=== PATIENT | female | born 1945 | race Caucasian/White ===

== ENCOUNTER 2023-12-16 09:38 | Observation (INO) ==
--- NOTE | 2023-12-16 10:39 | Emergency Department Note ---
ED Provider Note History of Present Illness Chief Complaint: Leg Injury/Pain Stated Complaint: PAIN DOWN L LEG, NUMBNESS IN SIDE OF LEG Time Seen by Provider: 12/16/23 10:04 78-year-old female who presents to the emergency department with her for evaluation of ongoing and worsening back pain and left lower extremity pain. The patient reports that she recently had an MRI, and is awaiting an appointment with the [facility] on 12/27/2023. The patient is on the cancellation list. The patient has been taking pain medications, muscle relaxers and nerve pills without any relief. The patient reports that she also has a history of arthritis of her hips. She gets bilateral hip injections every [address] Menard, and is scheduled for her next injection on 01/01/2024. The patient reports that this pain does not feel like her hip. The patient reports that she has also developed bruising of her left leg, and denies any trauma. She denies history of blood clots. The patient currently rates her discomfort a 10 out of 10. Home Medications Medication Instructions Recorded Confirmed Type hydroxyzine HCl 25 mg tablet 25 mg PO HS PRN sleep #90 tabs 07/09/22 12/16/23 Rx omeprazole 40 mg capsule,delayed 40 mg PO DAILY #90 caps 07/09/22 12/16/23 Rx release ascorbic acid (vitamin C) 500 mg 500 mg PO DAILY #30 caps 03/06/23 12/16/23 Rx capsule cyanocobalamin (vitamin B-12) 1,000 mcg PO DAILY #30 caps 03/06/23 12/16/23 Rx 1,000 mcg capsule glucosamine-chondroitin 250 mg-200 2 tab PO TID #180 tabs 03/06/23 12/16/23 Rx mg tablet (Osteo Bi-Flex) sertraline 25 mg tablet (Zoloft) 25 mg PO DAILY #90 tabs 06/03/23 12/16/23 Rx furosemide 20 mg tablet 20 mg PO BID #180 tabs 07/23/23 12/16/23 Rx gabapentin 100 mg capsule 100 mg PO TID #90 caps 12/06/23 12/16/23 Rx hydrocodone 5 mg-acetaminophen 325 1 tab PO Q8H PRN pain 3 days #9 12/13/23 12/16/23 Rx mg tablet tabs clotrimazole 1 % topical cream 1 applic topical UD 12/16/23 12/16/23 History (Athlete's Foot (clotrimazole)) Allergies Allergy/AdvReac Type Severity Reaction Status Date / Time No Known Allergies Allergy Verified 12/13/23 10:45 Past Med/Surg History Problem List (Updated 12/16/23 @ 16:58 by Allan Garcia) Hypokalemia (Acute) Lumbar back pain with radiculopathy affecting left lower extremity (Acute) Intractable low back pain (Acute) Low back pain radiating to left leg Disc degeneration, lumbar Low back pain radiating to right leg Medical History Lumbosacral radiculopathy at L4 Osteoarthritis, hip, bilateral Elevated blood pressure reading Anxiety Peptic ulcer of stomach Diverticula, colon Lymphedema of lower extremity Osteoarthritis of shoulders, bilateral Surgical History H/O esophagogastroduodenoscopy (~05/09/22) Normal esophagus. Non-bleeding gastric ulcer with no stigmata of bleeding. Normal examined duodenum. Repeat 3 months S/P colonoscopy (~09/27/20) diverticulosis sigmoid colon/biopsies show adenomatous polyps. 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 [employer] Feels Safe at Home: Yes Childhood Exposure to Second-Hand Smoke: No Dental Care, Regularly: Yes Sunscreen Use: Yes Physical Exam Vital Signs Vital Signs - 24 hr 12/16/23 09:43 12/16/23 10:45 12/16/23 12:28 Temperature 36.8 C Temperature Source Temporal Artery Scan Pulse Rate 92 H 90 Pulse Rate [Apical] 75 Pulse Strength [Apical] Normal Respiratory Rate 18 19 Respiratory Effort / Characteristics Non-Labored Spontaneous Non-Labored Spontaneous Respiratory Depth Normal Normal Respiratory Pattern Regular Regular Blood Pressure 170/85 H Blood Pressure [Left Arm] 164/93 H Blood Pressure Mean 113 Blood Pressure Mean [Left Arm] 116 Pulse Oximetry 100 98 Oxygen Delivery Method Room Air Room Air Sepsis Recent Fever Within 48 Hours No Sepsis New/Unexplained Change in Mental Status N/A Sepsis Action Taken by Nursing No Action Required 12/16/23 14:00 12/16/23 16:00 Temperature Temperature Source Pulse Rate Pulse Rate [Apical] 78 80 Pulse Strength [Apical] Respiratory Rate 18 14 Respiratory Effort / Characteristics Non-Labored Spontaneous Respiratory Depth Normal Respiratory Pattern Blood Pressure Blood Pressure [Left Arm] 136/93 148/94 H Blood Pressure Mean Blood Pressure Mean [Left Arm] 107 112 Pulse Oximetry 94 94 Oxygen Delivery Method Room Air Room Air Sepsis Recent Fever Within 48 Hours Sepsis New/Unexplained Change in Mental Status Sepsis Action Taken by Nursing CONSTITUTIONAL: Healthy and well nourished. Patient appears in moderate discomfort. HEENT: Normocephalic, atraumatic. Pupils equal, round and reactive. RESPIRATORY: Clear to auscultation bilaterally with no wheezing, crackles, rhonchi or stridor. CARDIOVASCULAR: Regular rate and rhythm with no murmurs, rubs or gallops. GASTROINTESTINAL: Bowel sounds present in all quadrants. Soft and nontender to palpation. MUSCULOSKELETAL: Examination of the left lower extremity shows soft tissue edema without any erythema, open wounds or other concerning skin conditions. The patient is generally tender to palpation through the calf and thigh region as well. Patient has discomfort with logroll, and has a mild positive straight leg raise. INTEGUMENTARY: No rash or other significant dermatologic conditions noted. HEMATOLOGIC: Examination shows sporadic ecchymosis of the left lower extremity. No petechiae or erythema noted. PSYCHIATRIC: Positive affect. NEUROLOGIC: No focal neurologic deficits noted. Course Course Patient history and physical exam were performed. Nurses notes reviewed. I did review outside medical records, including the patient's latest office notes. Also reviewed the patient's latest MRI, showing discogenic degeneration with ligamentum flavum thickening and facet arthrosis. She also has multilevel central canal and neuroforaminal narrowing. No large herniations or severe central canal stenosis appreciated. Further review shows that the patient also was seen by Dr. Ashley, not any Orthopedics back surgeon in May 2023. He had recommended tizanidine and steroids for pain control. The patient reports that the steroids did not provide any relief. The patient voices frustration that nothing that she is taking is helping with her pain, and is concerned that she has something else going on. IV access was established, and labs are drawn. The patient was hydrated with normal saline 500 cc bolus, and administered IV morphine and Zofran for pain. Review of labs shows relatively normal white count, coagulation studies. The patient does have a mild hypokalemia of 3.2. Venous ultrasound of the left lower extremity does not show evidence for DVT. The patient did request additional pain medication, and was administered additional IV morphine. I did discuss normal findings with the patient. The patient voiced concern for her inability to control pain at home. At this point, I did elect to escalate care, discussing the case with Dr. Blanco, ED attending physician, as well as the [facility] Hospitalist service. The patient indicates that she feels that another WENDI would help her significantly, however does not feel that she can wait until her scheduled appointment. I did try to call the [facility] provider on-call, but unfortunately did not receive a return phone call. The case was discussed with the hospitalist service, who has agreed to bring the patient in for pain control until she can get her pain management consult. Please see their dictation for further treatment and final disposition. Administered Medications Discontinued Medications Dexamethasone Sodium Phosphate (DexamethasonePf 10 Mg/Ml Vial) 6 mg IV NOW ONE Stop: 12/16/23 10:31 Last Admin: 12/16/23 10:44 Dose: 6 mg Documented By: FORTINO Sodium Chloride (Nss) 500 mls @ 999 mls/hr IV .Q31M ONE Stop: 12/16/23 11:02 Last Infusion: 12/16/23 11:22 Dose: Infused Documented By: Admin: 12/16/23 10:46 Dose: 999 mls/hr Documented By: FORTINO Morphine Sulfate (Morphine Sulfate 2 Mg/Ml Carp) 2 mg IV NOW STA Stop: 12/16/23 10:31 Last Admin: 12/16/23 10:44 Dose: 2 mg Documented By: FORTINO Morphine Sulfate (Morphine Sulfate 4 Mg/Ml 1 Ml Carp\Vial) 4 mg IV NOW STA Stop: 12/16/23 13:10 Last Admin: 12/16/23 13:47 Dose: 4 mg Documented By: FORTINO Ondansetron HCl (Ondansetron Inj 2 Mg/Ml 2 Ml Vial) 4 mg IV NOW STA Stop: 12/16/23 10:31 Last Admin: 12/16/23 10:44 Dose: 4 mg Documented By: FORTINO Potassium Chloride (Potassium Chloride Crtab 20 Meq Tabcr) 40 meq PO NOW STA Stop: 12/16/23 14:28 Last Admin: 12/16/23 14:43 Dose: 40 meq Documented By: FORTINO Medical Decision Making Medical Records Attestation: I reviewed the patient's medical records. Home Medications was personally reviewed by me Laboratory Data Attestation: I reviewed the patient's lab results. 12/16/23 10:45 12/16/23 10:45 Lab Results 12/16/23 Range/Units 10:45 WBC 7.92 (4.8-10.8) K/ul RBC 4.64 (4.20-5.40) M/uL Hgb 14.4 (12.0-16.0) g/dl Hct 40.3 (37.0-47.0) % MCV 86.9 (80.0-100.0) fL MCH 31.0 (25.0-34.0) pg MCHC 35.7 (32.0-36.0) g/dL RDW Std Deviation 42.3 (36.4-46.3) fL RDW Coeff of Soha 13.6 (11.5-14.5) % Plt Count 390 (130-400) K/uL MPV 9.5 (9.4-12.4) fL Immature Gran % (Auto) 0.4 % Neut % (Auto) 62.9 % Lymph % (Auto) 25.3 % [place]pin % (Auto) 10.4 % Eos % (Auto) 0.6 % Baso % (Auto) 0.4 % Neut # (Auto) 4.99 (1.40-6.50) K/uL Lymph # (Auto) 2.00 (1.20-3.40) K/uL [place] # (Auto) 0.82 H (0.11-0.59) K/uL Eos # (Auto) 0.05 (0.00-0.50) K/uL Baso # (Auto) 0.03 (0.00-0.20) K/uL Immature Gran # (Auto) 0.03 (0.01-0.20) K/uL ESR 20 (0-30) mm/hr PT 10.3 (9.0-12.0) Seconds INR 0.9 (0.9-1.1) APTT 27 (21-31) Seconds PTT Ratio 1.0 Sodium 136 (136-145) mmol/L Potassium 3.2 L (3.5-5.1) mmol/L Chloride 99 (98-107) mmol/L Carbon Dioxide 26 (21-32) mmol/L Anion Gap 11 (3-11) BUN 17 (6-23) mg/dl Creatinine 0.61 (0.6-1.2) mg/dl Est Cr Clr Drug Dosing 64.2 ml/min Est GFR ( Amer) 99.9 ml/min Est GFR (Non-Af Amer) 86.2 ml/min BUN/Creatinine Ratio 27.9 H (10-20) Glucose 90 (70-99(Fasting)) mg/dl Calcium 9.2 (8.6-10.3) mg/dl Total Bilirubin 0.5 (0.2-1.0) mg/dl AST 37 (13-39) U/L ALT 43 (7-52) U/L Alkaline Phosphatase 122 H (34-104) U/L Total Protein 7.5 (6.0-8.3) gm/dl Albumin 4.4 (3.4-5.0) gm/dl Globulin 3.1 (2.5-4.0) gm/dl Albumin/Globulin Ratio 1.4 (0.9-2) Imaging Data Attestation: I personally reviewed and interpreted this imaging study as follows: My Impression: My interpretation of the venous ultrasound of the left lower extremity does not show evidence for DVT. Radiologist report was also reviewed with concurrence. Radiologist's Impression: Venous Doppler Study 12/16/23 10:33 LEFT LOWER EXTREMITY VENOUS DOPPLER CLINICAL HISTORY: LLE pain, ecchymosis, edema COMPARISON STUDY: No previous studies for comparison. TECHNIQUE: Sonography of the deep venous system of the left lower extremity was performed. Compression and augmentation were evaluated. FINDINGS: The left common femoral, superficial femoral and popliteal veins were compressible. Augmentation was normal. Flow was shown within the deep calf vessels. IMPRESSION: No evidence of deep venous thrombus within the left lower extremity. ACT 112: Negative or not required by law. Electronically signed by: Roberto Antonio M.D. 12/16/2023 12:25 PM Prescription Drug Monitoring [place] Drug Monitoring Program reviewed and no issues identified MDM Narrative See ED Course section for further details of today's visit. The patient presents to the emergency department with complaint of uncontrollable lower back pain radiating down to her left foot. The patient does have a history of lumbar radiculitis. She has undergone epidural steroid injections in the past. The patient reports that she has received multiple medications from her PCP, has completed physical therapy, and has exhausted all additional multimodal treatments at home without relief. With progressively worsening symptoms, she has requested pain management consultation, although she has an appointment scheduled for 12/27/2023. Her workup today, including lab work, does not show any concerning findings. Patient does have atraumatic ecchymosis of the left lower extremity. She also has a history of lymphedema. Given her symptoms, I did elect to get an ultrasound left upper extremity which was negative for DVT. The patient denies any recent trauma, and having had an MRI performed on 12/04/2023, I did not feel that further imaging was warranted. Patient is afebrile does not have an elevated white count to suggest infectious etiologies. Patient does have a mild hypokalemia which can be corrected by the hospitalist team. Consultation will be placed with pain management for further evaluation, with the patient requesting an epidural steroid injection. It is noted that the patient has had prior injections in her back and other joints by orthopedics. Impression Intractable low back pain, Lumbar back pain with radiculopathy affecting left lower extremity, Hypokalemia Discharge Plan Visit Data Chief Complaint: Leg Injury/Pain Stated Complaint: PAIN DOWN L LEG, NUMBNESS IN SIDE OF LEG ED Provider: Paulina Blanco ED Midlevel Provider: Allan Garcia Discharge Problem: Intractable low back pain, Lumbar back pain with radiculopathy affecting left lower extremity, Hypokalemia Forms Stand Alone Forms: [place] Prescriptions Prescriptions: No Action sertraline [Zoloft] 25 mg tablet 25 mg PO DAILY Qty: 90 3RF furosemide 20 mg tablet 20 mg PO BID Qty: 180 1RF gabapentin 100 mg capsule 100 mg PO TID Qty: 90 1RF glucosamine-chondroitin [Osteo Bi-Flex] 250-200 mg tablet 2 tab PO TID Qty: 180 0RF Rx Instructions: otc give after food/meal cyanocobalamin (vitamin B-12) 1,000 mcg capsule 1,000 mcg PO DAILY Qty: 30 0RF Rx Instructions: otc ascorbic acid (vitamin C) 500 mg capsule 500 mg PO DAILY Qty: 30 0RF Rx Instructions: otc hydroxyzine HCl 25 mg tablet 25 mg PO HS PRN (Reason: sleep) Qty: 90 0RF omeprazole 40 mg capsule,delayed release(DR/EC) 40 mg PO DAILY Qty: 90 1RF Rx Instructions: OTC/ no fill history available hydrocodone-acetaminophen 5-325 mg tablet 1 tab PO Q8H PRN (Reason: pain) 3 Days Qty: 9 0RF clotrimazole [Athlete's Foot (clotrimazole)] 1 % cream 1 applic topical UD Rx Instructions: 1 ivanna bid last filled 02/2023 Referrals Referrals: Kanika Espinoza CRNP [Primary Care Provider] -
[2023-12-16] MEDS: MoRPHine SULFATE 2 MG/ML CARP IV STA (10:44)
[2023-12-16] MEDS: ONDANSETRON INJ 2 MG/ML 2 ML VIAL IV STA (10:44)
[2023-12-16] MEDS: dexAMETHasone**PF** 10 MG/ML VIAL IV ONE (10:44)
[2023-12-16] MEDS: SODIUM CHLORIDE 0.9% 500 ML IV ONE (10:46)
[2023-12-16 11:25] LABS: Albumin Globulin Ratio 1.4 (0.9-2); Albumin Level 4.4 gm/dl (3.4-5.0); BUN Creatinine Ratio 27.9 (10-20); Bilirubin,Total 0.5 mg/dl (0.2-1.0); Calcium 9.2 mg/dl (8.6-10.3); Creatinine Clr Calc Pharmacy 64.2 ml/min; Est GFR (African American) 99.9 ml/min; Est GFR (Non-African American) 86.2 ml/min; Globulin 3.1 gm/dl (2.5-4.0); Potassium 3.2 mmol/L (3.5-5.1); Total Protein 7.5 gm/dl (6.0-8.3)
[2023-12-16 11:40] LABS: INR 0.9 (0.9-1.1); Partial Thromboplastin Time 27 Seconds (21-31); Prothrombin Time 10.3 Seconds (9.0-12.0)
[2023-12-16 12:12] LABS: Basophils # (auto) 0.03 K/uL (0.00-0.20); Basophils % (auto) 0.4 %; Eosinophils # (auto) 0.05 K/uL (0.00-0.50); Eosinophils % (auto) 0.6 %; Hematocrit (blood only) 40.3 % (37.0-47.0); Hemoglobin 14.4 g/dl (12.0-16.0); Immature Granulocytes # (auto) 0.03 K/uL (0.01-0.20); Immature Granulocytes % (auto) 0.4 %; Lymphocytes % (auto) 25.3 %; Mean Corpuscular Hgb Conc 35.7 g/dL (32.0-36.0); Mean Corpuscular Volume 86.9 fL (80.0-100.0); Mean Platelet Volume 9.5 fL (9.4-12.4); Monocytes # (auto) 0.82 K/uL (0.11-0.59); Monocytes % (auto) 10.4 %; Neutrophils # (auto) 4.99 K/uL (1.40-6.50); Neutrophils % (auto) 62.9 %; Platelet Count 390 K/uL (130-400); RDW Coefficient of Variation 13.6 % (11.5-14.5); RDW Standard Deviation 42.3 fL (36.4-46.3); Red Blood Count 4.64 M/uL (4.20-5.40); White Blood Count 7.92 K/ul (4.8-10.8)
--- NOTE | 2023-12-16 12:26 | Ultrasound Report ---
LEFT LOWER EXTREMITY VENOUS DOPPLER CLINICAL HISTORY: LLE pain, ecchymosis, edema COMPARISON STUDY: No previous studies for comparison. TECHNIQUE: Sonography of the deep venous system of the left lower extremity was performed. Compressi on and augmentation were evaluated. FINDINGS: The left common femoral, superficial femoral and popliteal veins were compressible. Augmen tation was normal. Flow was shown within the deep calf vessels. IMPRESSION: No evidence of deep venous thrombus within the left lower extremity. ACT 112: Negative or not required by law. Electronically signed by: Roberto Antonio M.D. 12/16/2023 12:25 PM
[2023-12-16] MEDS: MoRPHine SULFATE 4 MG/ML 1 ML CARP\\VIAL IV STA (13:47)
--- NOTE | 2023-12-16 14:02 | Hospitalist Progress Note ---
Date of Service December 16, 2023 Assessment & Plan (1) Low back pain radiating to right leg: Plan: Acute on chronic low back pain, no recent fall/trauma, no red flag symptoms on admission. Has outpatient establish care appointment 12/26, but pain was too bad and patient presented to the ER. Lumbar MRI 12/03: Discogenic degeneration with ligamentum flavum thickening and facet arthrosis resulting in multilevel central canal and neuroforaminal narrowing. Received Dexamethasone in the ER, no additional steroids ordered on admission Gabapentin increased to 200mg TID (home dose 100mg TID) Scheduled tylenol. PRN oxycodone. Consult pain management - NPO at midnight incase of procedure tomorrow One sided bruises on left leg - Doppler negative for DVT - hgb stable (2) Lymphedema of lower extremity: Plan: Continue lasix BID K 3.2 on admission, replaced PO AM BMP Plan Chronic stable medical conditions: * hx of gastric ulcer - continue PPI, avoid NSAIDs * anxiety - continue zoloft Dispo: admit to medical DVT proh: defer chemical in setting of possible injection Code status: DNR/DNI - discussed with patient Ziggy Mondragon is 78F with a PMH of anxiety, lymphedema, hx of gasric ulcer and lumbar back pain who presents to the ED for worsening of her left leg/back pain. States pain has been worsening over the last month, she has been seen by her PCP and ortho-spine for this issue. Has trialed gabapentin, muscle relaxers, tylenol, lidocaine patches and oxycodone. Did feel like gabapentin provided some relief for a few days but then worsened. She had a similar problem 3 years ago and resolved with epidural injection. Presented to the ER today, after having worsening pain in her right leg. Was scheduled to see pain management 12/26 as a new patient appointment. Denies red flag symptoms - incontinence or bowel/bladder dysfunction, fever. No fall or recent trauma. Does have new bruising only on her left leg - no thinner or antiplatelets. ED Course: Dexamethsone 6mg NSS 500 zofran morphine 2mg morphine 4mg Review of Systems Review of Systems: All systems reviewed & are unremarkable except as noted in Subjective Physical Exam Physical Exam: General: NAD, VS as above Resp: normal respiratory effort, lungs clear to auscultation CV: RRR, no murmur, Abd: soft, non tender, Extremities: Moves all extremities, + Straight leg raise on the right. Intact strength and sensation to b/l LE Neuro: A&O x3, Skin: intact, bruising to left thigh Results & Data Results & Data Vital Signs (Past 12 Hours) Vital Signs Temp Pulse Pulse Resp BP BP Pulse Ox 12/16/23 12:28 75 19 164/93 H 98 12/16/23 10:45 90 12/16/23 09:43 98.2 F 92 H 18 170/85 H 100 O2 Del Method 12/16/23 12:28 Room Air 12/16/23 10:45 12/16/23 09:43 Room Air Laboratory Results CBC, chemistry, and coagulation studies reviewed Diagnostic Findings LE doppler reviewed PG Care Time/CCT Total # of Minutes Spent Total Time Spent with Patient: Total time spent is greater than 50% in coordination of care (as documented) at patient's floor/unit and/or counseling patient: Coding Level of Care Code 15673 SUB INP/OBS CARE 2/35MIN Diagnoses Low back pain radiating to right leg M54.50; M79.604 Lymphedema of lower extremity I89.0
[2023-12-16] MEDS: POTASSIUM CHLORIDE CRTAB 20 MEQ TABCR PO STA (14:43)
--- NOTE | 2023-12-16 16:51 | History & Physical Report ---
Date of Service December 16, 2023 Assessment & Plan (1) Low back pain radiating to left leg: Plan: Acute on chronic low back pain, no recent fall/trauma, no red flag symptoms on admission. Has outpatient establish care appointment 12/26, but pain was too bad and patient presented to the ER. Lumbar MRI 12/03: Discogenic degeneration with ligamentum flavum thickening and facet arthrosis resulting in multilevel central canal and neuroforaminal narrowing. Received Dexamethasone in the ER, no additional steroids ordered on admission Gabapentin increased to 200mg TID (home dose 100mg TID) Scheduled tylenol. PRN oxycodone. Consult pain management - plan to see her tomorrow, but unlikely that they will be able to provide injection given the amount of injections she has gotten from ortho on other joints Consult ortho spine - has seen doretha in the past One sided bruises on left leg - Doppler negative for DVT - hgb stable (2) Lymphedema of lower extremity: Plan: Continue lasix 20mg BID K 3.2, replaced PO AM BMP Plan Chronic stable medical conditions: * hx of gastric ulcer - continue PPI, avoid NSAIDs * anxiety - continue zoloft Dispo: admit to medical DVT proh: defer chemical in setting of possible injection Code status: DNR/DNI - discussed with patient History of Present Illness Chief Complaint: Alanna is 78F with a PMH of anxiety, lymphedema, hx of gasric ulcer and lumbar back pain who presents to the ED for worsening of her left leg/back pain. States pain has been worsening over the last month, she has been seen by her PCP and ortho-spine for this issue. Has trialed gabapentin, muscle relaxers, tylenol, lidocaine patches and oxycodone. Did feel like gabapentin provided some relief for a few days but then worsened. She had a similar problem 3 years ago and resolved with epidural injection. Presented to the ER today, after having worsening pain in her right leg. Was scheduled to see pain management 12/26 as a new patient appointment. Denies red flag symptoms - incontinence or bowel/bladder dysfunction, fever. No fall or recent trauma. Does have new bruising only on her left leg - no thinner or antiplatelets. ED Course: Dexamethsone 6mg NSS 500 zofran morphine 2mg morphine 4mg Primary Care Provider: Kanika S. Olga, [facility] SENIOR CARE PROVIDER Allergies Allergy/AdvReac Type Severity Reaction Status Date / Time No Known Allergies Allergy Verified 12/13/23 10:45 Home Medications Medication Instructions Recorded Confirmed Type hydroxyzine HCl 25 mg tablet 25 mg PO HS PRN sleep #90 tabs 07/09/22 12/16/23 Rx omeprazole 40 mg capsule,delayed 40 mg PO DAILY #90 caps 07/09/22 12/16/23 Rx release ascorbic acid (vitamin C) 500 mg 500 mg PO DAILY #30 caps 03/06/23 12/16/23 Rx capsule cyanocobalamin (vitamin B-12) 1,000 mcg PO DAILY #30 caps 03/06/23 12/16/23 Rx 1,000 mcg capsule glucosamine-chondroitin 250 mg-200 2 tab PO TID #180 tabs 03/06/23 12/16/23 Rx mg tablet (Osteo Bi-Flex) sertraline 25 mg tablet (Zoloft) 25 mg PO DAILY #90 tabs 06/03/23 12/16/23 Rx furosemide 20 mg tablet 20 mg PO BID #180 tabs 07/23/23 12/16/23 Rx gabapentin 100 mg capsule 100 mg PO TID #90 caps 12/06/23 12/16/23 Rx hydrocodone 5 mg-acetaminophen 325 1 tab PO Q8H PRN pain 3 days #9 12/13/23 12/16/23 Rx mg tablet tabs clotrimazole 1 % topical cream 1 applic topical UD 12/16/23 12/16/23 History (Athlete's Foot (clotrimazole)) Past Med/Surg History Problem List Low back pain radiating to left leg Disc degeneration, lumbar Low back pain radiating to right leg Medical History Lumbosacral radiculopathy at L4 Osteoarthritis, hip, bilateral Elevated blood pressure reading Anxiety Peptic ulcer of stomach Diverticula, colon Lymphedema of lower extremity Osteoarthritis of shoulders, bilateral Surgical History H/O esophagogastroduodenoscopy (~05/09/22) Normal esophagus. Non-bleeding gastric ulcer with no stigmata of bleeding. Normal examined duodenum. Repeat 3 months S/P colonoscopy (~09/27/20) diverticulosis sigmoid colon/biopsies show adenomatous polyps. 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 Intact strength and sensation to b/l LE Neuro: A&O x3, Skin: intact, bruising to left thigh Results & Data Results & Data Vital Signs (Past 12 Hours) Vital Signs Temp Pulse Pulse Resp BP BP Pulse Ox 12/16/23 16:00 80 14 148/94 H 94 12/16/23 14:00 78 18 136/93 94 12/16/23 12:28 75 19 164/93 H 98 12/16/23 10:45 90 12/16/23 09:43 98.2 F 92 H 18 170/85 H 100 O2 Del Method 12/16/23 16:00 Room Air 12/16/23 14:00 Room Air 12/16/23 12:28 Room Air 12/16/23 10:45 12/16/23 09:43 Room Air Supervising Physician Co-Signing Physician Notes Patient seen and examined, chart reviewed, case discussed with Kerri Strickland PA-C and I agree with the assessment and plan as above except as otherwise noted Labs and images reviewed 78-year-old female with a past medical history of lumbar disc disease with multilevel central canal narrowing who presents to the ER with progressive pain. She was scheduled to follow-up with pain management for possible steroid injections however pain has progressed to the point where she is having difficulty functioning at home and presented to the ER for evaluation. Left leg back pain is worsened for the last month and has not had significant improvement with gabapentin, tizanadine, lido patches, or tylenol. She has received morphine, dexamethasone in the ER and reports this helped a little, but not enough to allow her to function. She would like to be admitted with pain management consultation and wanted to have another epidural steroid injection. She does not have any saddle anesthesia, any weakness, or any bowel/bladder retention/incontinence. At bedside service desk specialist strength 5/5, elbow flexion/extension 5/5, ankle dorsiflexion/plantarflexion 5/5 bilaterally Additional injections are limited by patient having multiple steroid injections this year with Ortho. At the bedside patient reports that she has been dealing with this pain for a full month, and she is the sole caregiver both for her and a sick dog and the pain is now making it very difficult to perform these activities. She also notes for the same reason she has not been interested in pursuing surgery either for her back hips or shoulders because it has not yet been necessary, and also she does not have the help required to help take care of her dog and family while she recovers. Would like to pursue all possible medical avenues until these are completely exhausted and/or ineffective. She reports she has had multiple injections of both her hips and shoulders this past year with Ortho which she spaces out now to around every 3-4 months and seem to work for her. Last epidural injection was 3 years ago. She is aware that because of this pain management may not be able to do an epidural steroid injection due to total dose limitations, but would like to discuss options with them in the morning. Will uptitrate gabapentin tonight. Agree with assessment and management above PG Care Time/CCT Total # of Minutes Spent Total Time Spent with Patient: Total time spent is greater than 50% in coordination of care (as documented) at patient's floor/unit and/or counseling patient: Coding Level of Care Code 45891 INT INP/OBS CARE 2/55MIN Diagnoses Low back pain radiating to left leg M54.50; M79.605 Lymphedema of lower extremity I89.0
[2023-12-16] MEDS ORDERED: POLYETHYLENE (MIRALAX) 17 GM PACK PO PRN (19:11)
[2023-12-16] MEDS ORDERED: MELATONIN 3 MG TAB PO PRN (19:11)
[2023-12-16] MEDS ORDERED: oxyCODONE HCL IR 5 MG TAB (IMMEDIATE RELEASE) PO PRN (19:11)
[2023-12-16] MEDS: FUROSEMIDE 20 MG TAB PO SCH (20:38)
[2023-12-16] MEDS: ACETAMINOPHEN 325 MG TAB PO SCH (20:38)
[2023-12-16] MEDS: GABAPENTIN 100 MG CAP PO SCH (20:39)
[2023-12-17 06:31] LABS: BUN Creatinine Ratio 28.1 (10-20); Calcium 8.9 mg/dl (8.6-10.3); Creatinine Clr Calc Pharmacy 63.3 ml/min; Est GFR (African American) 102.2 ml/min; Est GFR (Non-African American) 88.2 ml/min; Potassium 3.9 mmol/L (3.5-5.1)
[2023-12-17 07:24] VITALS: RESP 18
--- NOTE | 2023-12-17 08:22 | Hospitalist Progress Note ---
Date of Service December 17, 2023 Assessment & Plan (1) Low back pain radiating to left leg: Plan: Acute on chronic low back pain, no recent fall/trauma, no red flag symptoms on admission. Has outpatient establish care appointment 12/26, but pain was too bad and patient presented to the ER. Lumbar MRI 12/03: Discogenic degeneration with ligamentum flavum thickening and facet arthrosis resulting in multilevel central canal and neuroforaminal narrowing. Received Dexamethasone in the ER, no additional steroids ordered on admission Gabapentin increased to 200mg TID (home dose 100mg TID) Scheduled tylenol. PRN oxycodone. Consult pain management - plan to see her tomorrow, but unlikely that they will be able to provide injection given the amount of injections she has gotten from ortho on other joints Consult ortho spine - has seen suzyatos in the past One sided bruises on left leg - Doppler negative for DVT - hgb stable (2) Lymphedema of lower extremity: Plan: Continue lasix 20mg BID K 3.2, replaced PO AM BMP Plan Chronic stable medical conditions: * hx of gastric ulcer - continue PPI, avoid NSAIDs * anxiety - continue zoloft Dispo: admit to medical DVT proh: defer chemical in setting of possible injection Code status: DNR/DNI - discussed with patient Admission and Anticipated Discharge Date Admission Date: December 16, 2023 Supervising Physician Co-Signing Physician Notes Attending attestation Pt seen and examined in concert with Dr. Gale. In agreement with the documented findings as noted in the resident documentation with any exceptions or additions as noted here. Reports pain well controlled at present on APAP and gabapentin 200mg x 2 doses. Has been doing PT x 2 months and feels like that is somewhat helpful. On discussion, defers surgical evaluation at this time after review of risks/benefits. On examination, S1/S2 nl RRR no MCG. CTAB. Abd NT/ND BS+ve. Overall negative SLR. Palpable spasm of the right lower back which is improved by lidocaine patch. Lower back pain with considerable degerative disk disease - continue gabapentin 200mg TID and APAP 1000mg TID. Do not combine APAP with hydrocodone-APAP rx previously. Encourage follow up with primary pain and ortho team for further management. Precautions for somnolence reviewed, follow with PCP for adjustment of gabapentin. Else see resident documentation as noted. Total attending physician time spent with this patient's care on the day of discharge: 40 minutes. Results & Data Results & Data Vital Signs (Past 12 Hours) Vital Signs Temp Pulse Resp BP Pulse Ox O2 Del Method 12/17/23 07:23 36 C L 84 18 154/75 H 97 Room Air 12/16/23 21:38 36.8 C 87 16 161/81 H 96 Room Air
--- NOTE | 2023-12-17 09:29 | Pain Management Consultation ---
Date of Consultation December 17, 2023 Assessment & Plan (1) Lumbar back pain with radiculopathy affecting left lower extremity: (2) Disc degeneration, lumbar: (3) Spinal stenosis of lumbar region: Plan 1. Patient has current injectable steroid burden of 800 mg since last December, which is above the pain clinic threshold of 240 mg in a calendar year. * Due to this, epidural steroid injection is not currently recommended due to risk of adrenal crisis. * If patient continues to receive steroidal joint injections, then she would continue to be ineligible for lumbar WENDI. 2. Patient currently not using the ordered oxycodone. Could give consideration for Nucynta, but would likely have difficulty getting coverage without the patient having tried and failed the other options initially. * So, do recommend that the patient utilize the oxycodone IR, or potentially try hydrocodoneacetaminophen. 3. Recommend increasing gabapentin further to 300 mg TID. 4. Lumbar spine MRI shows multilevel moderate stenosis, but no specific areas of severe findings. There may also be a component of left piriformis syndrome occurring. 5. Patient wishes to go home today to take care of her , whom she says has cancer. She says she also has a sick dog that she needs to get home to. I had recommended that she work with PT/OT to ensure she is safe to return home, but she will need to discuss discharge plans with the hospitalist team. 6. I see that a consult is placed for orthospine, Dr. Brown, and the patient has noted that she is not interested in surgery due to her other obligations. 7. Pain management team will sign off at this time, and the patient may follow- up as an outpatient in the pain clinic if she so chooses in the future. History of Present Illness Reason for Consultation: worsening lumbar back pain Requesting Physician: Kerri Strickland PA-C Attending Physician: Hamilton Sanchez MD History of Present Illness Patient is a 78-year-old female who presented to the emergency department with her on 12/16/2023 for evaluation of ongoing and worsening back pain and left lower extremity pain. The patient reported that she had recently had an MRI, and was awaiting an appointment with the [facility] on 12/27/2023. The patient reported being on the cancellation list. The patient was been taking pain medications, muscle relaxers, and nerve pain pills without any relief. The patient reported that she also has a history of arthritis of her hips. She gets bilateral hip injections every [address] Menard, and is scheduled for her next injection on 01/01/2024. Patient also receives bilateral shoulder steroid injections by Dr. Dallas every 3 to 4 months. The patient reports that her current pain does not feel like it is coming from her hip. The patient reports that she has also developed bruising of her left anterior thigh leg, and she denied any trauma. She denied history of blood clots. Patient said that she was having difficulty with lifting her left leg at the hip, and agreed that it felt like a weakness. She was localizing pain today to the left buttocks and down the posterior lateral left thigh and lower lower leg. She described the pain as being a "sciatica" type of pain that she had previously experienced, and which only responded to a lumbar epidural steroid injection that she had done up near [facility]. It seems that that injection was at least a few years ago, and did provide her with adequate relief of symptoms at that time. Patient does have a history of lumbar disc disease with multilevel central canal narrowing. Again, she was scheduled to to have an initial visit with the [facility] pain management clinic for possible steroid injections, however pain had progressed to the point where she was having difficulty functioning at home and so she presented to the ER for evaluation. He her pain was worsening over a period of at least a month prior to her arrival at the ED. Patient was requesting admission with a pain management consultation to have another epidural steroid injection. She had noted no significant improvement with gabapentin, tizanidine, lidocaine patches, and Tylenol. The gabapentin was just recently started by her PCP at 100 mg TID. She denied any bowel/bladder incontinence or saddle anesthesia. Today, the patient notes that she is the sole caregiver for both her , who has cancer, and a sick dog. She is wanting to get back home as soon as possible to take care of them. Due to this, she was not interested in discussing any potential surgical intervention. She was requesting to pursue and exhaust any and all more conservative treatment measures. Case discussed with Dr. Skylar Burgess. Pain Assessment Full Body Front + Back: 2 1. 2. Allergies Allergy/AdvReac Type Severity Reaction Status Date / Time No Known Allergies Allergy Verified 12/13/23 10:45 Home Medications Medication Instructions Recorded Confirmed Type hydroxyzine HCl 25 mg tablet 25 mg PO HS PRN sleep #90 tabs 07/09/22 12/16/23 Rx omeprazole 40 mg capsule,delayed 40 mg PO DAILY #90 caps 07/09/22 12/16/23 Rx release ascorbic acid (vitamin C) 500 mg 500 mg PO DAILY #30 caps 03/06/23 12/16/23 Rx capsule cyanocobalamin (vitamin B-12) 1,000 mcg PO DAILY #30 caps 03/06/23 12/16/23 Rx 1,000 mcg capsule glucosamine-chondroitin 250 mg-200 2 tab PO TID #180 tabs 03/06/23 12/16/23 Rx mg tablet (Osteo Bi-Flex) sertraline 25 mg tablet (Zoloft) 25 mg PO DAILY #90 tabs 06/03/23 12/16/23 Rx furosemide 20 mg tablet 20 mg PO BID #180 tabs 07/23/23 12/16/23 Rx hydrocodone 5 mg-acetaminophen 325 1 tab PO Q8H PRN pain 3 days #9 12/13/23 12/16/23 Rx mg tablet tabs clotrimazole 1 % topical cream 1 applic topical UD 12/16/23 12/16/23 History (Athlete's Foot (clotrimazole)) acetaminophen 500 mg tablet 1,000 mg (2 x 500 mg) PO Q8 PRN 12/17/23 Rx (Tylenol Extra Strength) pain 15 days #90 tabs gabapentin 100 mg capsule 200 mg (2 x 100 mg) PO TID 30 days 12/17/23 Rx #180 caps Patient History Medical History Lumbosacral radiculopathy at L4 Osteoarthritis, hip, bilateral Elevated blood pressure reading Anxiety Peptic ulcer of stomach Diverticula, colon Lymphedema of lower extremity Osteoarthritis of shoulders, bilateral Surgical History H/O esophagogastroduodenoscopy (~05/09/22) Normal esophagus. Non-bleeding gastric ulcer with no stigmata of bleeding. Normal examined duodenum. Repeat 3 months S/P colonoscopy (~09/27/20) diverticulosis sigmoid colon/biopsies show adenomatous polyps. Performed by Solo Dunne MD S/P arthroscopic knee surgery (~02/17/13) Arthroscopy knee medial or lateral meniscectomy performed by Juvenal Webb MD at OR [facility] Family History Other No pertinent family history Social History Smoking Status: Never smoker Second Hand Exposure: No; Do You Dip or Chew Tobacco: No; Hx Alcohol Use: Yes Alcohol type: wine Hx Substance Use: No Preferred Language: Spanish Communication Ability: Effective Computer Mechanic Required: No Beliefs That Will Affect Care: None marital status: Current Living Situation: Spouse current occupational status: retired 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 Mood and affect is appropriate. Does not appear in acute distress. Lying supine in bed with appearance of mild discomfort. HEAD: Normocephalic; atraumatic. NECK: Trachea is midline. CHEST: Regular chest respiration and excursion. EXTREMITIES: Distal sensation and pulses intact bilaterally. BACK: Diminished ROM.No midline, SI joint, or facet joint tenderness. + TTP left buttocks over sciatic nerve/notch and piriformis. Inspection/palpation demonstrates loss of normal lumbar lordotic curvature. NEURO: CN II-XII grossly intact with no focal deficits noted. Gait not witnessed. Awake, alert, and oriented x 3. SKIN: No lesions, erythema, or rashes noted. LOWER EXTREMITIES: R Hip flexion 5/5; hip extension 5/5; knee extension 5/5; knee flexion 5/5; ankle dorsiflexion 5/5; ankle plantar flexion 5/5; EHL 5/5 L Hip flexion 3+/5; hip extension 4/5; knee extension 4+/5; knee flexion 4+/5; ankle dorsiflexion 5/5; ankle plantar flexion 5/5; EHL 5/5 Results (Pain Clinic) Diagnostic Review MRI Findings: MR lumbar spine wo con CLINICAL HISTORY: 78 years-old Female with M54.50 - Low back pain, unspecified. Chronic low back pain with left-sided sciatica. COMPARISON: Lumbar spine radiographs 01/30/2023. TECHNIQUE: Multiplanar, multi sequence MRI of the lumbar spine was performed without intravenous contrast. FINDINGS: Computer Forensics Examiner localizer images demonstrate no gross extraspinal abnormality. There is mild levoscoliosis. Study is motion degraded. No acute fracture, subluxation, endplate erosion or marrow replacing process. No significant bone marrow edema. Conus medullaris terminates at L1. Moderate multilevel intervertebral disc space narrowing and spondylitic spurring with fofdymtn-rc-rdyvnr facet arthrosis. Circumferential annular disc bulging is also noted at several levels. Normal signal within the imaged thoracic spinal cord. T12-L1: Central canal is patent. Yzvv-lz-ztimohpr right with mild left foraminal narrowing. L1-L2: Posterior annular disc bulge with ligamentum flavum thickening and advanced facet arthrosis causes moderate central canal stenosis. AP dimension of the thecal sac measures 7 mm. Mild right with fjhr-iq-xdbuvykv left foraminal narrowing. L2-L3: Posterior annular disc bulge with ligamentum flavum thickening and advanced facet arthrosis causes icxg-vp-gdevnnal central canal stenosis. AP dimension of the thecal sac measures 8 mm. Mild bilateral foraminal stenosis. L3-L4: Posterior annular disc bulge. Ligamentum flavum thickening with moderate facet arthrosis. Kddf-la-fgoitvej central canal stenosis with AP dimension of the thecal sac measuring 8 mm. Rsdd-ce-zcbwmqbd right with mild left foraminal narrowing. L4-L5: Tiny posterior disc osteophyte complex. Ligamentum flavum thickening and thickening with advanced facet arthrosis causes ixlv-si-klgjymbd central canal stenosis. AP dimension of the thecal sac measures 8 mm. Moderate right with dqsq-zj-rgyhonef left foraminal narrowing. L5-S1: Tiny posterior annular disc bulge. Ligamentum flavum thickening with kquzsykz-fb-irngzy facet arthrosis. Tiny central disc protrusion. No significant central canal or foraminal narrowing. Trace right facet effusion. IMPRESSION: 1. No acute fracture or subluxation. 2. Discogenic degeneration with ligamentum flavum thickening and facet arthrosis as above resulting in multilevel central canal and neuroforaminal narrowing. ACT 112: Negative or not required by law. The above report was generated using voice recognition software. It may contain grammatical, syntax or spelling errors. Dictated: 12/04/2023 4:20 PM Transcribed: 12/04/2023 4:38 PM Zhao [id number] [email or web address] Electronically signed by: Boone Smith M.D. 12/04/2023 6:54 PM Dictated: 12/04/23 1620 Transcribed: 12/04/23 1638 Venous Doppler Study 12/16/23 10:33 LEFT LOWER EXTREMITY VENOUS DOPPLER CLINICAL HISTORY: LLE pain, ecchymosis, edema COMPARISON STUDY: No previous studies for comparison. TECHNIQUE: Sonography of the deep venous system of the left lower extremity was performed. Compression and augmentation were evaluated. FINDINGS: The left common femoral, superficial femoral and popliteal veins were compressible. Augmentation was normal. Flow was shown within the deep calf vessels. IMPRESSION: No evidence of deep venous thrombus within the left lower extremity. ACT 112: Negative or not required by law. Electronically signed by: Roberto Antonio M.D. 12/16/2023 12:25 PM
[2023-12-17] MEDS: SERTRALINE HCL 50 MG TABLET PO SCH (09:54)
[2023-12-17] MEDS: PANTOprazole 40 MG TAB PO SCH (09:55)
[2023-12-17] MEDS: ACETAMINOPHEN 500 MG TAB PO SCH (09:59)
[2023-12-17] MEDS: LIDOCAINE 5% 1 PATCH TD STA (11:37)
[2023-12-17 14:52] VITALS: TEMP 97.7; O2SAT 96
[2023-12-17 17:25] VITALS: BP 167/84; PULSE 79
--- NOTE | 2023-12-17 17:33 | Discharge Summary ---
Date of Service December 17, 2023 Admission HPI Per Admitting Provider Chief Complaint: Alanna is 78F with a PMH of anxiety, lymphedema, hx of gasric ulcer and lumbar back pain who presents to the ED for worsening of her left leg/back pain. States pain has been worsening over the last month, she has been seen by her PCP and ortho-spine for this issue. Has trialed gabapentin, muscle relaxers, tylenol, lidocaine patches and oxycodone. Did feel like gabapentin provided some relief for a few days but then worsened. She had a similar problem 3 years ago and resolved with epidural injection. Presented to the ER today, after having worsening pain in her right leg. Was scheduled to see pain management 12/26 as a new patient appointment. Denies red flag symptoms - incontinence or bowel/bladder dysfunction, fever. No fall or recent trauma. Does have new bruising only on her left leg - no thinner or antiplatelets. Admission Exam Per Admitting Provider General: NAD, VS as above Resp: normal respiratory effort, lungs clear to auscultation CV: RRR, no murmur, Abd: soft, non tender, Extremities: Moves all extremities, + Straight leg raise on the right. Intact strength and sensation to b/l LE Neuro: A&O x3, Skin: intact, bruising to left thigh Principal Diagnosis Lower back pain Discharge Exam Gen: NAD, WD/WN, pleasant HEENT: NCAT, PERRL CV: RRR, no m/r/g, S1/S2 normal Resp: CTAB, symmetrical chest rise, breathing non-labored Abd: Soft, NT/ND, +BS MSK: Full ROM, pain not reproduced w straight leg raise, no ttp Skin: Warm, dry, pink, no rashes or lesions Neuro: AOx3, CN II-XII grossly intact Psych: Mood-affect congruent. Speech pace and content normal. Discharge Data Allergies Allergy/AdvReac Type Severity Reaction Status Date / Time No Known Allergies Allergy Verified 12/13/23 10:45 Consultations 12/16/23 14:03 ED Decision to Admit Stat 12/16/23 14:25 Consult Pain Management Stat 12/16/23 19:11 Consult Orthopedic Spine Surgery Routine Ordered Studies 12/16/23 10:45 12/17/23 05:40 12/16/23 10:33 US venous doppler LE Stat Hospital Course (1) Low back pain radiating to left leF with history of degenerative disc disease (central canal + neuroforaminal narrowing) on as needed opiates who presented for poorly controlled lower back pain. ER workup negative for acute fracture, acute exacerbation of aforementioned DDD, foraminal stenosis. Admitted for acute pain management. Lower Back Pain Radiating to Left Leg -Lumbar MRI (12/03): DDD with central canal and neuroforaminal narrowing. -Pain control achieved by increasing home gabapentin dose to 200 mg 3 times daily, OTC Tylenol 1000 mg every 8 hours scheduled, TD lidocaine. Now at goal. -Continue gabapentin 200 mg 3 times daily, Tylenol 1000 mg every 8 hours as needed for breakthrough pain. Lymphedema of Lower Extremity -Continue home furosemide 20 mg twice daily. -Continue at discharge. (2) Lymphedema of lower extremity: Total Time Total Time Spent Total Time Spent (In Minutes): Please see attending attestation. Discharge Plan Discharge Items Patient Disposition: Home - Self-Care Reason For Visit: LOW BACK PAIN Discharge Diagnosis: Acute Activity: Per Instructions section Non-emergency contact: Primary Care Provider Call non-emergency contact if: you have any medication questions, your symptoms worsen and your pain is not controlled Follow-up/Referrals: Kanika Espinoza CRNP [Primary Care Provider] - Diet: Regular Addtl Attending Provider Instructions: Dearavindra Mondragon, You came to the hospital due to back pain that was not controlled by your chronic at home regimen. We evaluated you with imaging to ensure that there was not an acute worsening of your chronic spinal stenosis. Once this was confirmed, we controlled your pain by modifying your home medications which helped. We also consulted with orthopedic surgery, to ensure that you did not require surgical intervention at this time. Now that your pain has improved, we believe that you are ready to be safely discharged home. Please pay attention to the following instructions below. If you have any questions, you may review it with your nurse before you are discharged. 1. We increased your home gabapentin dose to 200 mg 3 times daily, from 100 mg 3 times daily. We have sent the new prescription to your pharmacy. Please take gabapentin 200 mg 3 times daily, unless otherwise instructed by your primary care physician. 2. For pain not controlled by gabapentin, we recommend that you take Tylenol 1000 mg every 8 hours as needed for pain. A new prescription for this medication has also been sent to your pharmacy. 3. We made no changes to the rest of your home medications. Please continue to take them as previously directed, unless otherwise instructed to by your primary care physician. 4. Our test man will make a follow follow-up appointment with your primary care provider, Kanika PEDRAZA. You should hear from their clinic to schedule the follow-up appointment in the next 2-3 business days. If you have not heard from their clinic by then, please contact them at [phone]. 5. If you find that your pain is worsening, you should reach out to your primary care provider for recommendations or to schedule a visit. If you are unable to reach out to them, and you experience the following symptoms saddle numbness (loss of sensation in your inner thighs), incontinence to stool or urine, lower leg weakness, or paralysis of your lower legs you should immediately head to the emergency room for urgent evaluation. It has been our pleasure to care for you here [facility]. If you have any questions or concerns about your care, you may reach out to us at [phone]. Pending Studies at Discharge: No Stand-Alone Forms: [facility], Smoking Cessation Medications and DC Order Prescriptions: New acetaminophen [Tylenol Extra Strength] 500 mg Tablet 1,000 mg PO Q8 PRN (Reason: pain) 15 Days Qty: 90 0RF gabapentin 100 mg Capsule 200 mg PO TID 30 Days Qty: 180 0RF Continued sertraline [Zoloft] 25 mg tablet 25 mg PO DAILY Qty: 90 3RF furosemide 20 mg tablet 20 mg PO BID Qty: 180 1RF glucosamine-chondroitin [Osteo Bi-Flex] 250-200 mg tablet 2 tab PO TID Qty: 180 0RF Rx Instructions: otc give after food/meal cyanocobalamin (vitamin B-12) 1,000 mcg capsule 1,000 mcg PO DAILY Qty: 30 0RF Rx Instructions: otc ascorbic acid (vitamin C) 500 mg capsule 500 mg PO DAILY Qty: 30 0RF Rx Instructions: otc hydroxyzine HCl 25 mg tablet 25 mg PO HS PRN (Reason: sleep) Qty: 90 0RF omeprazole 40 mg capsule,delayed release(DR/EC) 40 mg PO DAILY Qty: 90 1RF Rx Instructions: OTC/ no fill history available hydrocodone-acetaminophen 5-325 mg tablet 1 tab PO Q8H PRN (Reason: pain) 3 Days Qty: 9 0RF clotrimazole [Athlete's Foot (clotrimazole)] 1 % cream 1 applic topical UD Rx Instructions: 1 ivanna bid last filled 02/2023 Discontinued gabapentin 100 mg capsule 100 mg PO TID Qty: 90 1RF Discharge Orders: Discharge Order (Routine); Ordered 12/17/23 Ordered By: Bria Noel/Other Patient Handouts: Relieving Back Pain, Medicine for Pain Admission Data Admit Date/Time: 12/16/23 14:25 Attending Provider: Hamilton Sanchez Admit Provider: Venkata Castanon Primary Care Provider: Kanika Espinoza Other Providers: Panda Diaz; Venkata Castanon; Josh Brown Other Interventions: Discharge Summary Assessment (RN) Last Done: 12/17/23 17:24 Supervising Physician Co-Signing Physician Notes Attending attestation Pt seen and examined in concert with Dr. Gale. In agreement with the documented findings as noted in the resident documentation with any exceptions or additions as noted here. Reports pain well controlled at present on APAP and gabapentin 200mg x 2 doses. Has been doing PT x 2 months and feels like that is somewhat helpful. On discussion, defers surgical evaluation at this time after review of risks/benefits. On examination, S1/S2 nl RRR no MCG. CTAB. Abd NT/ND BS+ve. Overall negative SLR. Palpable spasm of the right lower back which is improved by lidocaine patch. Lower back pain with considerable degerative disk disease - continue gabapentin 200mg TID and APAP 1000mg TID. Do not combine APAP with hydrocodone-APAP rx previously. Encourage follow up with primary pain and ortho team for further management. Precautions for somnolence reviewed, follow with PCP for adjustment of gabapentin. Else see resident documentation as noted. Total attending physician time spent with this patient's care on the day of discharge: 40 minutes. Resident Activity Tracking Resident Involvement: Resident Care Provided Care Provided: Adult Hospital Medicine
[2023-12-18] MEDS ORDERED: LIDOCAINE 5% 1 PATCH TD SCH (09:00)
== END 2023-12-17 17:46 | disposition home or self-care (01) ==
LOC: 3W 09:38 → ED 09:38 → SUATTDRO 14:25 → 3W 18:00

== ENCOUNTER 2024-01-31 04:52 | Observation (INO) ==
--- NOTE | 2024-01-01 15:59 | PAT Medication Instructions ---
Medication Instructions Date of Service January 01, 2024 Home Medications Medication Instructions Recorded hydroxyzine HCl 25 mg tablet 25 mg PO HS PRN sleep #90 tabs 07/09/22 omeprazole 40 mg capsule,delayed 40 mg PO DAILY #90 caps 07/09/22 release ascorbic acid (vitamin C) 500 mg 500 mg PO DAILY #30 caps 03/06/23 capsule cyanocobalamin (vitamin B-12) 1,000 mcg PO DAILY #30 caps 03/06/23 1,000 mcg capsule glucosamine-chondroitin 250 mg-200 2 tab PO TID #180 tabs 03/06/23 mg tablet (Osteo Bi-Flex) sertraline 25 mg tablet (Zoloft) 25 mg PO DAILY #90 tabs 06/03/23 furosemide 20 mg tablet 20 mg PO BID #180 tabs 07/23/23 gabapentin 100 mg capsule 200 mg (2 x 100 mg) PO TID 30 days 12/17/23 #180 caps hydrocodone 5 mg-acetaminophen 325 1 tab PO Q8H PRN pain 2 weeks #42 12/23/23 mg tablet tabs hydroxyzine HCl 25 mg tablet 25 mg PO HS PRN sleep omeprazole 40 mg capsule,delayed release 40 mg PO DAILY ascorbic acid (vitamin C) 500 mg capsule 500 mg PO DAILY cyanocobalamin (vitamin B-12) 1,000 mcg capsule 1,000 mcg PO DAILY glucosamine-chondroitin 250 mg-200 mg tablet (Osteo Bi-Flex) 2 tab PO TID sertraline 25 mg tablet (Zoloft) 25 mg PO DAILY furosemide 20 mg tablet 20 mg PO BID clotrimazole 1 % topical cream (Athlete's Foot (clotrimazole)) 1 applic topical UD gabapentin 100 mg capsule 200 mg (2 x 100 mg) PO TID hydrocodone 5 mg-acetaminophen 325 mg tablet 1 tab PO Q8H PRN pain 2 weeks Continue as directed omeprazole 40 mg capsule,delayed release 40 mg PO DAILY sertraline 25 mg tablet (Zoloft) 25 mg PO DAILY STOP taking 2 weeks before surgery glucosamine-chondroitin 250 mg-200 mg tablet (Osteo Bi-Flex) 2 tab PO TID STOP taking 24 hours before surgery clotrimazole 1 % topical cream (Athlete's Foot (clotrimazole)) 1 applic topical UD DO NOT take the morning of surgery ascorbic acid (vitamin C) 500 mg capsule 500 mg PO DAILY cyanocobalamin (vitamin B-12) 1,000 mcg capsule 1,000 mcg PO DAILY furosemide 20 mg tablet 20 mg PO BID Take morning of surgery With a small sip of water, OTHERWISE NOTHING TO EAT OR DRINK AFTER MIDNIGHT: gabapentin 100 mg capsule 200 mg (2 x 100 mg) PO TID hydrocodone 5 mg-acetaminophen 325 mg tablet 1 tab PO Q8H PRN pain (if needed) Take evening before surgery hydroxyzine HCl 25 mg tablet 25 mg PO HS PRN sleep (if needed) furosemide 20 mg tablet 20 mg PO BID gabapentin 100 mg capsule 200 mg (2 x 100 mg) PO TID hydrocodone 5 mg-acetaminophen 325 mg tablet 1 tab PO Q8H PRN pain 2 weeks (if needed) Other Notes If you have any questions please call us at [phone] or [phone] or [phone] or [phone]
--- NOTE | 2024-01-13 09:19 | Anesthesiology Consultation ---
Date of Service January 13, 2024 Assessment & Plan (1) Encounter for pre-operative examination: - fluid bolus to anesthesiologist discretion DOS: neuraxial vs general anesthesia discussed with patient given her history of lumbar disc disease and recently [facility] ER evaluation due to back pain exacerbation. She verbalized understanding that final determination will be to assigned anesthesiologist evaluation and determination after discussion with patient DOS. She denied questions or concerns. - discharge summary 12/17/23 [facility]: "...Lower Back Pain Radiating to Left Leg- Lumbar MRI (12/03): DDD with central canal and neuroforaminal narrowing-Pain control achieved by increasing home gabapentin dose to 200 mg 3 times daily, OTC Tylenol 1000 mg every 8 hours scheduled, TD lidocaine...Lymphedema of Lower Extremity-Continue home furosemide 20 mg twice daily..." - Outpatient joint assessment: Patient is currently scheduled for inpatient pathway. If re-evaluated and patient/surgeon requests outpatient pathway, patient is not advised candidate for outpatient joint program from anesthesia standpoint. Chart Review Chart Review: Acceptable Risk for Surgery and Patient seen in Pre Admission Testing Teaching & Discussion Pre-Anesthesia Teaching/Discussion Notes: Instructed NPO after midnight before surgery, except medications with 15 cc of water. Medication instructions provided according to the PAT guidelines. History Surgery Operation Date: 01/31/24 10:00 Proposed Procedures p Left Anterior Total Hip Arthroplasty - Rodríguez Dallas DO Height/Weight Height: 5 ft 2 in Weight: 57.9 kg Allergies Allergy/AdvReac Type Severity Reaction Status Date / Time No Known Allergies Allergy Verified 01/01/24 14:48 Medications Home Medications Medication Instructions Recorded Confirmed Last Taken hydroxyzine HCl 25 mg tablet 25 mg PO HS PRN sleep #90 tabs 07/09/22 01/01/24 Unknown omeprazole 40 mg capsule,delayed 40 mg PO DAILY #90 caps 07/09/22 01/01/24 Unknown release ascorbic acid (vitamin C) 500 mg 500 mg PO DAILY #30 caps 03/06/23 01/01/24 Unknown capsule glucosamine-chondroitin 250 mg-200 2 tab PO TID #180 tabs 03/06/23 01/01/24 Unknown mg tablet (Osteo Bi-Flex) sertraline 25 mg tablet (Zoloft) 25 mg PO DAILY #90 tabs 06/03/23 01/01/24 Unknown gabapentin 100 mg capsule 200 mg (2 x 100 mg) PO TID 30 days 12/17/23 01/01/24 Unknown #180 caps hydrocodone 5 mg-acetaminophen 325 1 tab PO Q8H PRN pain 2 weeks #42 12/23/23 01/01/24 Unknown mg tablet tabs cyanocobalamin (vitamin B-12) 1,000 mcg PO DAILY 01/10/24 01/10/24 Unknown 1,000 mcg tablet furosemide 20 mg tablet 20 mg PO BID #180 tabs 01/13/24 Unknown Past Medical History Medical History Anxiety Disc degeneration, lumbar Diverticula, colon Elevated blood pressure reading reports has been slightly elevated because of pain, no meds Intractable low back pain Lumbosacral radiculopathy at L4 Lymphedema of lower extremity reason for lasix Osteoarthritis of hips, bilateral Osteoarthritis of shoulders, bilateral Peptic ulcer of stomach (~04/2022) Spinal stenosis of lumbar region Patient denies h/o stroke, seizures, heart attack, heart failure, DM, blood clots/DVTs or blood transfusions. Exercise / Class Metabolic Activity III < 4 Walking/Shop/Light housework (ambulates with rolling walker, denies chest discomfort or shortness of breath with usual activities) Past Family History Family History Other No pertinent family history Past Surgical History Surgical History H/O esophagogastroduodenoscopy (~05/09/22) Normal esophagus. Non-bleeding gastric ulcer with no stigmata of bleeding. Normal examined duodenum. Repeat 3 months Hx of vascular surgery ~30 yrs ago, for hereditary lymphedema of lower extremities S/P arthroscopic knee surgery (~02/17/13) Arthroscopy knee medial or lateral meniscectomy performed by Juvenal Webb MD at [facility] S/P colonoscopy diverticulosis sigmoid colon/biopsies show adenomatous polyps. Performed by Solo Dunne MD Past Anesthesia History No Hx of Anesthesia Complications and No Family Hx of Anesthesia Complications History of PONV No Hx of PONV and Hx of Motion Sickness Social History Smoking Status: Never smoker Do You Dip or Chew Tobacco: No Hx Alcohol Use: Yes Alcohol type: wine alcohol intake frequency: a few times a month Hx Substance Use: No substance use type: does not use Review of Systems Patient denies chest pain, shortness of breath, dyspnea on exertion, snoring, witnessed apneas, fever, chills, cough, wheezing, or palpitations. Physical Exam Vital Signs Vitals BP 135/87 P 77 TEMP 98.1 SP02 98% on RA RESP 18 Physical Patient resting comfortably in chair in no acute distress, alert and oriented, responding appropriately throughout visit Full cervical extension range of motion without pain TMD 3.5 finger breadths Mallampati Score 3 Dentition: partial front upper and several caps/crowns, denies chipped or loose teeth, implants or bridges Lungs: normal respiratory effort. Good air movement, clear throughout to auscultation, no adventitious breath sounds Cardiac: regular rate and rhythm, no murmurs noted Carotid arteries: negative bruit bilat Lab Results Anesthesia Preop Results Results Anesthesia Widget: WBC 7.92 K/ul (4.8-10.8) 12/16/23 Hgb 14.4 g/dl (12.0-16.0) 12/16/23 Hct 40.3 % (37.0-47.0) 12/16/23 Plt 390 K/uL (130-400) 12/16/23 Na 135 mmol/L (136-145) L 12/17/23 K 3.9 mmol/L (3.5-5.1) 12/17/23 Cl 100 mmol/L (98-107) 12/17/23 CO2 27 mmol/L (21-32) 12/17/23 BUN 16 mg/dl (6-23) 12/17/23 Creat 0.57 mg/dl (0.6-1.2) L 12/17/23 Glucose Level 94 mg/dl (70-99(Fasting)) 12/17/23 PT 10.3 Seconds (9.0-12.0) 12/16/23 PTT 27 Seconds (21-31) 12/16/23 INR 0.9 (0.9-1.1) 12/16/23 Blood Type O Positive 01/13/24 Antibody Screen NEGATIVE 01/13/24 Testing Electrocardiogram Date: 01/13/24 NSR, rate 74 bpm Left axis deviation Nonspecific ST abnormality Chest X-Ray Date: 01/13/24 No acute cardiopulmonary findings. Other Testing Lumbar spine MRI 12/04/23 1. No acute fracture or subluxation. 2. Discogenic degeneration with ligamentum flavum thickening and facet arthrosis as above resulting in multilevel central canal and neuroforaminal narrowing.
[2024-01-31] MEDS: ACETAMINOPHEN 500 MG TAB PO SCH ×2 (05:43→14:32)
[2024-01-31] MEDS: GABAPENTIN 300 MG CAP PO SCH (05:44)
[2024-01-31] MEDS: LR 60ML/HR IV SCH (05:44)
[2024-01-31] MEDS: FAMOTIDINE 20 MG TAB PO SCH (05:44)
[2024-01-31] MEDS: dexAMETHasone**PF** 10 MG/ML VIAL IV SCH (06:10)
[2024-01-31] MEDS: LR 15ML/HR IV SCH (06:10)
[2024-01-31] MEDS ORDERED: ROPIVACAINE 0.5% 5 MG/ML 30 ML VIAL ONE (06:14)
--- NOTE | 2024-01-31 06:34 | History & Physical Bridge Note ---
Date of Service January 31, 2024 History & Physical Bridge Note I have examined the patient, reviewed the History & Physical and in the interval since the performance of the History & Physical I have noted the following changes of clinical significance: no changes noted
[2024-01-31] MEDS ORDERED: ONDANSETRON INJ 2 MG/ML 2 ML VIAL IV PRN ×2 (06:38→08:36)
[2024-01-31] MEDS ORDERED: KETOROLAC 30 MG/ML VIAL IV PRN (06:38)
[2024-01-31] MEDS ORDERED: ePHEDrine sulfate 50 MG/ML AMP IV PRN (06:38)
[2024-01-31] MEDS ORDERED: HYDROmorphone INJ 1 MG/ML SYRINGE IV PRN ×2 (06:38→08:36)
[2024-01-31] MEDS ORDERED: ATROPINE SULFATE 0.1 MG/ML 10ML SYR IV PRN (06:38)
[2024-01-31] MEDS ORDERED: MIDAZOLAM HCL 1 MG/ML 2ML VIAL ONE (06:39)
[2024-01-31] MEDS: TRANEXAMIC ACID 1,000 MG **IV Pre-op IV SCH (06:44)
[2024-01-31] MEDS: ceFAZolin 2000MG 2,000 MG/15 ML SYR IV SCH ×2 (07:00→15:12)
[2024-01-31] MEDS ORDERED: ONDANSETRON INJ 2 MG/ML 2 ML VIAL ONE (07:29)
[2024-01-31] MEDS ORDERED: PROPOFOL IV EMULSION 10 MG/ML 20 ML VIAL IV ONE (07:29)
[2024-01-31] MEDS ORDERED: LIDOCAINE 2% 2 ML VIAL/AMP(20MG/ML) INFIL ONE (07:29)
[2024-01-31] MEDS: ORTHO JOINT ANESTHETIC ONE (07:38)
[2024-01-31] MEDS: TRANEXAMIC ACID 1,000 MG **IV Intra-op IV SCH (08:08)
[2024-01-31] MEDS: ROPIV 0.5% 246mg, Ketorolac 30mg, EPINEPHrine 0.5mg in NSS INFIL SCH (08:09)
--- NOTE | 2024-01-31 08:12 | Operative Report ---
PG Post Operative Report Pre & Post Diagnosis Operation Date: 01/31/24 07:00 Pre-Op Diagnosis: Osteoarthritis of Left Hip Post-Op Diagnosis: Osteoarthritis of Left Hip I identified the patient and participated in the time-out.: Yes Procedure Operation Date: 01/31/24 07:00 Actual Procedures p Left Anterior Total Hip Arthroplasty(Left) - Rodríguez Dallas DO Surgeon Rodríguez Dallas DO Pneumatic Tester Mechanic Carley Gold PA-C Estimated Blood Loss 150 Findings Consistent with Post-Op Diagnosis Specimens Left femoral head Description of Procedure Implants used I used a ZimmerBiomet total hip arthroplasty system with a size 4 standard offset Avenir Complete stem, a 48 mm G7 cup with a 25mm screw, an E1 polyethylene liner, a 32 mm ceramic head with a 0 neck. Alanna arrived at the hospital for the above procedure. She was seen in the preoperative holding area and the operative extremity was identified and signed. She was given a spinal anesthetic, a preoperative antibiotic, and TXA. She was then taken back to the operating room and laid on the table in the supine position. She was given basic sedation. The operative leg was secured to a Puristst leg positioner. The hip was then prepped and draped in sterile fashion. A timeout was done and the patient and the operative extremity was properly identified. An anterior approach was used. Dissection was taken down through the fascia and the tensor muscle belly was retracted laterally and the rectus was retracted medially. The circumflex vessels were identified and ligated. The capsule was then incised and tagged for later repair. The femoral neck was then cut and the femoral head was removed. The acetabulum was exposed. Time was spent doing a complete circumferential labral release. Sequential reaming of the acetabulum up to a size 47 reamer was done. Final reamings were done under fluoroscopy to ensure appropriate version. A Biomet 48 mm G7 cup was then impacted into place. A single 25 mm screw was placed. The E1 polyethylene liner was then snapped into place. Surrounding soft tissues were then injected with 100 cc of an orthopedic pain control cocktail. The proximal femur was then exposed. Sequential broaching up to a size 4 broach was done. Off that broach a size 32 head with a 0 neck was trialed. The hip was reduced and fluoroscopic images showed anatomic alignment of the implants in acceptable length. The broach was removed. The final size 4 standard offset Avenir Complete stem was then impacted into place. A ceramic 32 mm head with a 0 neck was then impacted onto the stem and the hip was reduced. Final fluoroscopic images showed anatomic alignment of the hip. The capsule was then closed with #1 Vicryl suture. A dilute betadyne lavage was then done for 3 minutes. The joint was then irrigated with normal saline solution. The fascia was closed with #1 PDS suture. Skin was closed with 2-0 Vicryl, mee, and a Silverlon dressing. She was then transferred to a hospital bed and taken to the post anesthesia care unit in stable condition. She tolerated the procedure well. Carley Gold PA-C, was present for the entire procedure. He was critical for patient positioning, prepping, draping, retraction exposure, wound closure and application of sterile dressing. I attest to the content of the Intraoperative Record and any orders documented therein. Any exceptions are noted below.
[2024-01-31] MEDS ORDERED: diphenhydrAMINE Capsule 25 MG CAP PO PRN (08:36)
[2024-01-31] MEDS ORDERED: bisacodyL 10 MG SUPP PR PRN (08:36)
[2024-01-31] MEDS ORDERED: MAGNESIUM HYDROXIDE SUSP 30 ML UDC PO PRN (08:36)
[2024-01-31] MEDS ORDERED: HYDROmorphone INJ 0.5 MG/0.5 ML SYR IV PRN (08:36)
[2024-01-31] MEDS ORDERED: METOCLOPRAMIDE HCL INJ 5 MG/ML 2 ML VIAL IV PRN (08:36)
[2024-01-31] MEDS ORDERED: NALOXONE HCL 0.4 MG/1 ML VIAL/CARP IV PRN (08:36)
[2024-01-31] MEDS ORDERED: hydrOXYzine HCl 25 MG TAB PO PRN (08:40)
--- NOTE | 2024-01-31 08:52 | Fluoroscopy Report ---
FL hip LT 1V CLINICAL HISTORY: LEFT ANT HIP COMPARISON STUDY: Left hip radiographs June 26, 2023. FLUOROSCOPY TIME: 10 seconds. Ka,r: 0.7282 mGy FLUOROSCOPIC IMAGES: 1 FINDINGS: Fluoroscopy was provided during anterior total left hip arthroplasty. Alignment is anatomic . No fractures are identified by fluoroscopy. IMPRESSION: Fluoroscopy provided during anterior total left hip arthroplasty. ACT 112: Negative or not required by law. Electronically signed by: Roberto Antonio M.D. 01/31/2024 8:50 AM
[2024-01-31] MEDS ORDERED: NON-FORMULARY MEDICATION (Glucosamine-Chondroitin [Osteo Bi-Flex] 250-200 mg tablet) PO SCH (09:00)
--- NOTE | 2024-01-31 09:44 | XRay Report ---
XR hip 1V LT w pelvis CLINICAL HISTORY: Postoperative evaluation. COMPARISON: Left hip radiographs June 26, 2023. FINDINGS: Alignment of the total left hip arthroplasty is anatomic. There is no periprosthetic fract ure or unexpected radiopaque foreign body. There are skin mee. IMPRESSION: Expected findings following total left hip arthroplasty. ACT 112: Negative or not required by law. Electronically signed by: Roberto Antonio M.D. 01/31/2024 9:43 AM
[2024-01-31] MEDS: SERTRALINE HCL 50 MG TABLET PO SCH (11:56)
[2024-01-31] MEDS: MULTIVITAMIN TAB PO SCH (11:56)
[2024-01-31] MEDS: FUROSEMIDE 20 MG TAB PO SCH (11:56)
[2024-01-31] MEDS: KETOROLAC TROMETHAMINE 15 MG/ML VIAL IV SCH (12:24)
[2024-01-31] MEDS: DOCUSATE SODIUM 100 MG CAP PO SCH (12:24)
[2024-01-31] MEDS: POTASSIUM CHLORIDE 10 MEQ TABCR PO SCH (12:24)
--- NOTE | 2024-01-31 13:37 | Anesthesiology Progress Note ---
Date of Service January 31, 2024 Anesthesia Post Procedure Vital Signs Vital Signs: Temp Pulse Pulse Resp BP BP Pulse Ox 01/31/24 12:29 36.7 C 87 18 152/83 H 96 01/31/24 11:56 36.6 C 103 H 18 162/93 H 95 01/31/24 11:31 36.8 C 86 18 160/81 H 97 01/31/24 10:53 36.9 C 104 H 16 151/73 H 99 01/31/24 10:20 75 20 178/100 H 98 01/31/24 10:05 74 18 164/75 H 99 01/31/24 09:50 75 18 164/75 H 99 01/31/24 09:35 83 18 164/75 H 98 01/31/24 09:20 36.4 C L 75 22 155/77 H 99 01/31/24 09:10 73 18 159/83 H 99 01/31/24 09:00 78 17 165/77 H 100 01/31/24 08:50 85 24 162/73 H 97 01/31/24 08:41 36.5 C 79 19 159/53 H 100 01/31/24 05:30 36.1 C L 82 16 178/89 H 98 O2 Del Method O2 Flow Rate 01/31/24 12:29 Room Air 01/31/24 11:56 Room Air 01/31/24 11:31 Room Air 01/31/24 10:53 Room Air 01/31/24 10:20 Room Air 01/31/24 10:05 Room Air 01/31/24 09:50 Room Air 01/31/24 09:35 Room Air 01/31/24 09:20 Room Air 01/31/24 09:10 Room Air 01/31/24 09:00 Room Air 01/31/24 08:50 Room Air 01/31/24 08:41 Oxymask 4 01/31/24 05:30 Room Air Pain Intensity Left Hip: Pain Intensity: 10 Transfer of Care Handoff Completed per policy Notes Mental Status: alert / awake / arousable Patient Amnestic to Procedure: Yes Nausea / Vomiting: adequately controlled Pain: adequately controlled Airway Patency, RR, SpO2: stable & adequate BP & HR: stable & adequate Hydration State: stable & adequate Neuraxial Anesthesia: was administered and sensory block is resolving Anesthetic Complications: no major complications apparent
[2024-01-31] MEDS: SENNA 8.6 MG TAB PO SCH (20:53)
[2024-01-31] MEDS: oxyCODONE HCL IR 5 MG TAB (IMMEDIATE RELEASE) PO PRN (20:53)
--- NOTE | 2024-02-01 06:47 | Orthopedic Progress Note ---
Date of Service February 01, 2024 Assessment & Plan (1) Status post left hip replacement: Overall she is doing fairly well. She is not having much pain in the left hip. She will be seen by physical therapy today for ambulation and range of motion exercises. She is on aspirin for DVT prophylaxis. She can be discharged to home later today. She will follow-up with orthopedics in 2 weeks. Subjective Alanna was seen and examined at bedside this morning. Overall she is doing fairly well. She is not having much pain in the left hip. She has been up and ambulating to the bathroom. She has no complaints.. Review of Systems All systems reviewed & are unremarkable except as noted in HPI & below. Physical Exam On physical examination of the left hip, the dressing is clean and dry. Her leg is out full extension. She has active dorsiflexion plantarflexion of her left ankle.. Results & Data Results & Data Laboratory Results . Diagnostic Findings Postoperative x-rays of the left hip show the prosthesis to be in anatomic alignment without any evidence of fracture complication, or loosening.. PG Care Time/CCT Total # of Minutes Spent Total Time Spent with Patient: Total time spent is greater than 50% in coordination of care (as documented) at patient's floor/unit and/or counseling patient: Coding Level of Care Code 57882 Post Operative Follow-Up Diagnoses Status post left hip replacement Z96.642
--- NOTE | 2024-02-01 06:48 | Discharge Summary ---
Date of Service February 01, 2024 Principal Diagnosis Same as "Discharge Diagnosis" noted below under Discharge Instructions. Discharge Exam On physical examination of the left hip, the dressing is clean and dry. Her leg is out full extension. She has active dorsiflexion plantarflexion of her left ankle.. Discharge Data Procedures Performed Operation Date: 01/31/24 07:00 Actual Procedures p Left Anterior Total Hip Arthroplasty(Left) - Rodríguez Dallas DO Ordered Studies 01/31/24 07:00 FL hip LT 1V Routine Hospital Course (1) Status post left hip replacement: On January 31, 2024 Alanna arrived at [facility] and underwent a left hip replacement without complication. She had a spinal anesthetic. Postoperatively she was started on aspirin for DVT prophylaxis and transferred to the general orthopedic floors. Her hospital course was uneventful. On postop day #1, her vital signs were stable and her pain was well-controlled. She was able to participate well with physical therapy doing ambulation and range of motion exercises. She was then discharged home. She will follow-up with orthopedics in 2 weeks. PG Care Time/CCT Total # of Minutes Spent Total Time Spent with Patient: Total time spent is greater than 50% in coordination of care (as documented) at patient's floor/unit and/or counseling patient: Discharge Plan Discharge Items Patient Disposition: Home - Self-Care Reason For Visit: Left Hip Arthritis Discharge Diagnosis: Left hip replacement Activity: Per Instructions section Non-emergency contact: Surgeon Call non-emergency contact if: your wound has increased redness and your wound has increased drainage Follow-up/Referrals: Kanika Espinoza CRNP [Primary Care Provider] - Diet: Regular Addtl Attending Provider Instructions: Activity and Therapy Recommendations: * If you are using [facility] then therapy will be provided at your home until they feel you have accomplished all of your goals. * If you are using [facility] then Physical Therapy will be provided until they feel you are ready to start Outpatient Physical Therapy. * If you are not using home therapy then Outpatient Physical Therapy should start about 3-5 days from your day of surgery. Therapy will last about 6-10 weeks * You were shown a series of exercises in the hospital. Do these exercises three times each day including the exercises you were shown in physical therapy. * Get up and walk several times each day.~ For the first four weeks, try not to stand or walk for more than one hour at a time. If you do stand or walk for more than one hour, you will not hurt anything, but your leg will likely swell.~~ * As you feel comfortable, you may change from the walker or crutches to a cane and~then to independent walking. Medications: * Narcotic You will likely be sent home from the hospital with a prescription for the narcotic pain medication that worked best throughout your stay. * Cefadroxil -take the antibiotic twice a day for 10 days to help prevent infection. * Aspirin Most patients will be required to take Aspirin 81mg twice a day for 6 weeks after surgery. This is obtained [id number] and a prescription is not necessary. * Other medications may be prescribed for specific circumstances. If you have any questions, please call the office at . * Resume previous home medications unless otherwise instructed TEDs/Elastic Stockings: The white elastic stockings help limit swelling and prevent blood clots from forming in your legs. The more you wear them, the more they work. Wear them for six weeks. Dressing Care: Leave the Silverlon dressing in place for 7 days. After 7 days you may remove the dressing. If the incision is not draining then you may leave the mee open to air. If there is a little bit of drainage or if the mee are getting stuck on your clothing then cover the incision with a dry dressing. The mee will be removed at your 2 week follow-up appointment. Showering: You may shower with the Silverlon dressing in place. Do not let the shower spray hit the dressing directly. Pat the Silverlon dressing dry. If the dressing becomes wet underneath, then simply remove the dressing. Keep the incision dry until you are 7 days out from the day of surgery. After 7 days you may remove the Silverlon dressing and shower with the mee exposed. Let soapy water run over the mee and pat them dry. Do not scrub or soak the incision. Diet: You may resume your previous diet. Things To Watch For: * Drainage from the incision site that occurs more than one week after your surgery. * Increased redness at the incision site. * Fever above 102 degrees Fahrenheit. * Unusual chest pain or shortness of breath. * Call [facility] at with any of the above problems Follow-Up Visit: Follow-up with Dr. Dallas's PA (Rodríguez Fenton) 2-3 weeks after your day of surgery. He will remove your mee and answer any questions. If you have any additional questions or concerns, Dr Dallas is usually in the office at the same time and will be available An appointment was probably scheduled when you signed-up for surgery in the office. If you have any questions call Office Instructions: More detailed instructions as well as Frequently Asked Questions were provided in a folder by our office when you signed-up for surgery. Please review these instructions when you get home. If you have any further questions or concerns, please feel free to call the office at [phone] Pending Studies at Discharge: No Stand-Alone Forms: My [facility], Smoking Cessation Medications and DC Order Prescriptions: New oxycodone 5 mg Tablet 5 mg PO Q4H PRN (Reason: pain) Qty: 30 0RF cefadroxil 500 mg capsule 500 mg PO BID 10 Days Qty: 20 0RF aspirin 81 mg Tablet,Delayed Release (Dr/Ec) 81 mg PO BID 42 Days Qty: 0 0RF Continued sertraline [Zoloft] 25 mg tablet 25 mg PO DAILY Qty: 90 3RF furosemide 20 mg tablet 20 mg PO BID Qty: 180 1RF glucosamine-chondroitin [Osteo Bi-Flex] 250-200 mg tablet 2 tab PO TID Qty: 180 0RF Rx Instructions: otc give after food/meal ascorbic acid (vitamin C) 500 mg capsule 500 mg PO DAILY Qty: 30 0RF Rx Instructions: otc hydroxyzine HCl 25 mg tablet 25 mg PO HS PRN (Reason: sleep) Qty: 90 0RF omeprazole 40 mg capsule,delayed release(DR/EC) 40 mg PO DAILY Qty: 90 1RF Rx Instructions: OTC/ no fill history available hydrocodone-acetaminophen 5-325 mg tablet 1 tab PO Q8H PRN (Reason: pain) 14 Days Qty: 42 0RF cyanocobalamin (vitamin B-12) 1,000 mcg Tablet 1,000 mcg PO DAILY potassium chloride 10 mEq Capsule, Extended Release 10 meq PO DAILY Discharge Orders: Discharge Order (Routine); Ordered 02/01/24 Ordered By: Rodríguez Dallas Admission Data Admit Date/Time: 01/31/24 08:36 Attending Provider: Rodríguez Dallas Admit Provider: Rodríguez Dallas Primary Care Provider: Kanika Espinoza
[2024-02-01 08:04] VITALS: BP 152/75; PULSE 100; RESP 16; TEMP 99.1; O2SAT 96
[2024-02-01] MEDS: dexAMETHasone 4 MG TAB PO SCH (08:44)
[2024-02-01] MEDS: ASCORBIC ACID 500 MG TAB PO SCH (08:45)
[2024-02-01] MEDS: CYANOCOBALAMIN (B-12) 500 MCG TABLET PO SCH (08:45)
[2024-02-01] MEDS: ASPIRIN 81 MG ECTAB PO SCH (08:45)
[2024-02-01] MEDS: PANTOprazole 40 MG TAB PO SCH (08:46)
== END 2024-02-01 11:43 | disposition home health service (06) ==
LOC: PACUINP 04:52 → ASU 04:52 → 3E 10:51

== ENCOUNTER 2024-06-29 06:51 | Observation (INO) ==
--- NOTE | 2024-06-16 13:13 | Anesthesiology Consultation ---
Date of Service June 16, 2024 Assessment & Plan (1) Encounter for pre-operative examination: - Infectious disease screening: Per assessment on 06/16/24- No known recent infectious disease contacts or current infectious disease symptoms. - Outpatient joint assessment: Pt currently scheduled for inpatient pathway. If surgeon requests review for outpatient joint pathway, patient not recommended candidate for outpatient joint program from anesthesia standpoint based on available information. - S/P Left anterior CHIQUIS (01/31/24): SAB at [facility]. No issues noted per post-op anesthesia progress note. Chart Review Chart Review: Acceptable Risk for Surgery and Patient NOT seen in Pre Admission Testing History Surgery Operation Date: 06/29/24 08:00 Proposed Procedures p Right Anterior Total Hip Arthroplasty - Rodríguez Dallas, Height/Weight Height: 5 ft 2 in Weight: 56.699 kg Allergies Allergy/AdvReac Type Severity Reaction Status Date / Time No Known Allergies Allergy Verified 06/16/24 12:29 Medications Home Medications Medication Instructions Recorded Confirmed Last Taken hydroxyzine HCl 25 mg tablet 25 mg PO HS PRN sleep #90 tabs 07/09/22 06/16/24 Unknown ascorbic acid (vitamin C) 500 mg 500 mg PO DAILY #30 caps 03/06/23 06/16/24 01/17/24 capsule glucosamine-chondroitin 250 mg-200 2 tab PO TID #180 tabs 03/06/23 06/16/24 01/17/24 mg tablet (Osteo Bi-Flex) cyanocobalamin (vitamin B-12) 1,000 mcg PO DAILY 01/10/24 06/16/24 01/17/24 1,000 mcg tablet furosemide 20 mg tablet 20 mg PO BID #180 tabs 01/13/24 06/16/24 01/30/24 17:30 potassium chloride 10 mEq 10 meq PO QAM 01/31/24 06/16/24 01/30/24 05:00 capsule,extended release omeprazole 40 mg capsule,delayed 40 mg PO QAM 06/16/24 06/16/24 Unknown release sertraline 25 mg tablet (Zoloft) 25 mg PO QAM 06/16/24 06/16/24 Unknown Past Medical History Medical History Anxiety Disc degeneration, lumbar Diverticula, colon Elevated blood pressure reading reports has been slightly elevated because of pain, no meds Intractable low back pain Lumbosacral radiculopathy at L4 Lymphedema of lower extremity reason for lasix Osteoarthritis of hips, bilateral left hip replaced 01/2024 Osteoarthritis of shoulders, bilateral Peptic ulcer of stomach (~04/2022) Spinal stenosis of lumbar region Past Family History Family History Other No pertinent family history Past Surgical History Surgical History H/O esophagogastroduodenoscopy History of total left hip arthroplasty 01/31/24, anterior Hx of vascular surgery ~30 yrs ago, for hereditary lymphedema of lower extremities S/P arthroscopic knee surgery (~02/17/13) Arthroscopy knee medial or lateral meniscectomy S/P colonoscopy Social History Smoking Status: Never smoker Do You Dip or Chew Tobacco: No Hx Alcohol Use: Yes Alcohol type: wine alcohol intake frequency: holidays/special occasions only Hx Substance Use: No substance use type: does not use Lab Results Anesthesia Preop Results Results Anesthesia Widget: WBC 9.81 K/ul (4.8-10.8) 06/04/24 Hgb 12.6 g/dl (12.0-16.0) 06/04/24 Hct 37.4 % (37.0-47.0) 06/04/24 Plt 431 K/uL (130-400) H 06/04/24 Na 134 mmol/L (136-145) L 06/04/24 K 4.2 mmol/L (3.5-5.1) 06/04/24 Cl 100 mmol/L (98-107) 06/04/24 CO2 28 mmol/L (21-32) 06/04/24 BUN 16 mg/dl (6-23) 06/04/24 Creat 0.52 mg/dl (0.6-1.2) L 06/04/24 Glucose Level 87 mg/dl (70-99(Fasting)) 06/04/24 PT 10.4 Seconds (9.0-12.0) 06/04/24 PTT 28 Seconds (21-31) 06/04/24 INR 1.0 (0.9-1.1) 06/04/24 Blood Type O Positive 06/04/24 Antibody Screen NEGATIVE 06/04/24 Testing Electrocardiogram Date: 01/13/24 NSR, rate 74 bpm Left axis deviation Nonspecific ST abnormality Chest X-Ray Date: 01/13/24 No acute cardiopulmonary findings.
--- NOTE | 2024-06-25 14:06 | History & Physical Report ---
Date of Service June 25, 2024 Assessment & Plan (1) Osteoarthritis of right hip: Proceed with a right total hip arthroplasty. Postoperatively, she will be started on aspirin for DVT prophylaxis and kept overnight in the hospital for postop medical management. She plans to have the hospital set up home health for discharge. History of Present Illness Chief Complaint: Osteoarthritis of the right hip. Primary Care Provider: MILO Peoples Alanna is a pleasant 78-year-old female who has been with chronic increasing right hip and groin pain. X-rays and clinical examination have been diagnostic for advanced osteoarthritis of the right hip. After failed conservative treatment, she has elected to proceed with a right total hip arthroplasty. I did do a left hip replacement on her about 6 months ago and she has done very well with that.. Allergies Allergy/AdvReac Type Severity Reaction Status Date / Time No Known Allergies Allergy Verified 06/16/24 12:29 Home Medications Medication Instructions Recorded Confirmed Type hydroxyzine HCl 25 mg tablet 25 mg PO HS PRN sleep #90 tabs 07/09/22 06/16/24 Rx ascorbic acid (vitamin C) 500 mg 500 mg PO DAILY #30 caps 03/06/23 06/16/24 Rx capsule glucosamine-chondroitin 250 mg-200 2 tab PO TID #180 tabs 03/06/23 06/16/24 Rx mg tablet (Osteo Bi-Flex) cyanocobalamin (vitamin B-12) 1,000 mcg PO DAILY 01/10/24 06/16/24 History 1,000 mcg tablet furosemide 20 mg tablet 20 mg PO BID #180 tabs 01/13/24 06/16/24 Rx potassium chloride 10 mEq 10 meq PO QAM 01/31/24 06/16/24 History capsule,extended release omeprazole 40 mg capsule,delayed 40 mg PO QAM 06/16/24 06/16/24 History release sertraline 25 mg tablet (Zoloft) 25 mg PO QAM 06/16/24 06/16/24 History Past Med/Surg History Problem List Tendinitis of both rotator cuffs Osteoarthritis of right hip Encounter for pre-operative examination Spinal stenosis of lumbar region Lumbar back pain with radiculopathy affecting left lower extremity (Acute) Disc degeneration, lumbar Medical History Disc degeneration, lumbar Osteoarthritis of hips, bilateral left hip replaced 01/2024 Spinal stenosis of lumbar region Intractable low back pain Lumbosacral radiculopathy at L4 Elevated blood pressure reading reports has been slightly elevated because of pain, no meds Anxiety Peptic ulcer of stomach (~04/2022) Diverticula, colon Lymphedema of lower extremity reason for lasix Osteoarthritis of shoulders, bilateral Surgical History History of total left hip arthroplasty 01/31/24, anterior Hx of vascular surgery ~30 yrs ago, for hereditary lymphedema of lower extremities H/O esophagogastroduodenoscopy S/P colonoscopy S/P arthroscopic knee surgery (~02/17/13) Arthroscopy knee medial or lateral meniscectomy Family History Other No pertinent family history Social History Smoking Status: Never smoker Second Hand Exposure: No; Do You Dip or Chew Tobacco: No; Hx Alcohol Use: Yes Alcohol type: wine Hx Substance Use: No Preferred Language: Somali Communication Ability: Effective B2B Sales Manager Required: No Beliefs That Will Affect Care: None marital status: Current Living Situation: Spouse current occupational status: retired 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 Physical Exam On physical exam of the right hip, she has decreased range of motion. She has pain with internal and external rotation. All of her pains located in the groin.. Constitutional WD/WN, vitals as above Eyes PERRL, conjunctivae normal, anicteric sclerae ENMT external ear and nose normal, oropharynx normal Neck trachea midline, no thyromegaly Respiratory normal respiratory effort Cardiovascular RRR, no murmur, no edema Gastrointestinal (Abdomen) normal bowel sounds, soft, nontender, no hepatosplenomegaly Psychiatric A+Ox3, euthymic affect Results & Data Results & Data Laboratory Results . Diagnostic Findings X-rays of the right hip show advanced osteoarthritis with joint space narrowing, osteophyte formation, and [id number] tubulation.. PG Care Time/CCT Total # of Minutes Spent Total Time Spent with Patient: Total time spent is greater than 50% in coordination of care (as documented) at patient's floor/unit and/or counseling patient: Coding Level of Care Code None Diagnoses Osteoarthritis of right hip M16.11
[~2024-06-29 06:51] MED LIST: ROPIVACAINE 0.5% 5 MG/ML 30 ML VIAL ONE
[2024-06-29] MEDS ORDERED: LIDOCAINE 2% 2 ML VIAL/AMP(20MG/ML) INFIL ONE (07:31)
[2024-06-29] MEDS ORDERED: PROPOFOL IV EMULSION 10 MG/ML 20 ML VIAL IV ONE ×3 (07:31→08:33)
[2024-06-29] MEDS ORDERED: ONDANSETRON INJ 2 MG/ML 2 ML VIAL ONE (07:31)
[2024-06-29] MEDS: LR 500ML BOLUS, THEN 15ML/HR IV SCH (07:34)
[2024-06-29] MEDS: dexAMETHasone**PF** 10 MG/ML VIAL IV SCH (07:35)
[2024-06-29] MEDS: ACETAMINOPHEN 500 MG TAB PO SCH ×2 (07:35→14:45)
[2024-06-29] MEDS: FAMOTIDINE 20 MG TAB PO SCH (07:35)
[2024-06-29] MEDS: LR 60ML/HR IV SCH (07:35)
[2024-06-29] MEDS: GABAPENTIN 300 MG CAP PO SCH (07:35)
--- NOTE | 2024-06-29 08:02 | History & Physical Bridge Note ---
Date of Service June 29, 2024 History & Physical Bridge Note I have examined the patient, reviewed the History & Physical and in the interval since the performance of the History & Physical I have noted the following changes of clinical significance: no changes noted
[2024-06-29] MEDS ORDERED: ePHEDrine sulfate 50 MG/ML AMP IV PRN (08:18)
[2024-06-29] MEDS ORDERED: fentaNYL citrate PF 100 MCG/2 ML VIAL IV PRN (08:18)
[2024-06-29] MEDS ORDERED: ONDANSETRON INJ 2 MG/ML 2 ML VIAL IV PRN ×2 (08:18→12:05)
[2024-06-29] MEDS ORDERED: ATROPINE SULFATE 0.1 MG/ML 10ML SYR IV PRN (08:18)
[2024-06-29] MEDS ORDERED: HYDROmorphone INJ 1 MG/ML SYRINGE IV PRN (08:18)
[2024-06-29] MEDS ORDERED: MIDAZOLAM HCL 1 MG/ML 2ML VIAL ONE (08:32)
[2024-06-29] MEDS: TRANEXAMIC ACID 1,000 MG **IV Pre-op IV SCH (08:39)
[2024-06-29] MEDS: ceFAZolin 2000MG 2,000 MG/15 ML SYR IV SCH (08:59)
[2024-06-29] MEDS ORDERED: KETAMINE HCL 10MG/ML SYR ONE (09:04)
[2024-06-29] MEDS: ORTHO JOINT ANESTHETIC ONE (09:23)
[2024-06-29] MEDS: ROPIV 0.5% 246mg, Ketorolac 30mg, EPINEPHrine 0.5mg in NSS INFIL SCH (09:41)
[2024-06-29] MEDS: TRANEXAMIC ACID 1,000 MG **IV Intra-op IV SCH (09:49)
--- NOTE | 2024-06-29 09:52 | Operative Report ---
PG Post Operative Report Pre & Post Diagnosis Operation Date: 06/29/24 09:00 Pre-Op Diagnosis: Right Hip Osteoarthritis Post-Op Diagnosis: Right Hip Osteoarthritis I identified the patient and participated in the time-out.: Yes Procedure Operation Date: 06/29/24 09:00 Actual Procedures p Right Anterior Total Hip Arthroplasty, Uncemented(Right) - Rodríguez Dallas DO Surgeon Rodríguez Dallas DO Risk Compliance Manager Jules Wise PA-C Estimated Blood Loss 150 Findings Consistent with Post-Op Diagnosis Specimens Right femoral head Description of Procedure Implants used I used a ZimmerBiomet total hip arthroplasty system with a size 4 standard offset Avenir Complete stem, a 46 mm G7 cup with a 25mm screw, an E1 polyethylene liner, a 32 mm ceramic head with a 0 neck. Alanna arrived at the hospital for the above procedure. She was seen in the preoperative holding area and the operative extremity was identified and signed. She was given a spinal anesthetic, a preoperative antibiotic, and TXA. She was then taken back to the operating room and laid on the table in the supine position. She was given basic sedation. The operative leg was secured to a Puristst leg positioner. The hip was then prepped and draped in sterile fashion. A timeout was done and the patient and the operative extremity was properly identified. An anterior approach was used. Dissection was taken down through the fascia and the tensor muscle belly was retracted laterally and the rectus was retracted medially. The circumflex vessels were identified and ligated. The capsule was then incised and tagged for later repair. The femoral neck was then cut and the femoral head was removed. The acetabulum was exposed. Time was spent doing a c omplete circumferential labral release. Sequential reaming of the acetabulum up to a size 45 reamer was done. Final reamings were done under fluoroscopy to ensure appropriate version. A Biomet 46 mm G7 cup was then impacted into place. A single 25 mm screw was placed. The E1 polyethylene liner was then snapped into place. Surrounding soft tissues were then injected with 100 cc of an orthopedic pain control cocktail. The proximal femur was then exposed. Sequential broaching up to a size 4 broach was done. Off that broach a size 32 head with a 0 neck was trialed. The hip was reduced and fluoroscopic images showed anatomic alignment of the implants in acceptable length. The broach was removed. The final size 4 standard offset Avenir Complete stem was then impacted into place. A ceramic 32 mm head with a 0 neck was then impacted onto the stem and the hip was reduced. Final fluoroscopic images showed anatomic alignment of the hip. The capsule was then closed with #1 Vicryl suture. A dilute betadyne lavage was then done for 3 minutes. The joint was then irrigated with normal saline solution. The fascia was closed with #1 PDS suture. Skin was closed with 2-0 Vicryl, mee, and a Silverlon dressing. She was then transferred to a hospital bed and taken to the post anesthesia care unit in stable condition. She tolerated the procedure well. Jules Wise PA-C, was present for the entire procedure. He was critical for patient positioning, prepping, draping, retraction exposure, wound closure and application of sterile dressing. I attest to the content of the Intraoperative Record and any orders documented therein. Any exceptions are noted below.
--- NOTE | 2024-06-29 10:39 | XRay Report ---
XR hip 1V RT w pelvis CLINICAL HISTORY: IN PACU - Post Surgical COMPARISON: 01/31/2024 FINDINGS: Interval right hip prosthesis shows no hardware complication. There is expected soft tissu e gas. Skin mee are present laterally. Left hip prosthesis is stable. IMPRESSION: Unremarkable postoperative exam. ACT 112: Negative or not required by law. Electronically signed by: Guero Andino M.D. 06/29/2024 10:38 AM
--- NOTE | 2024-06-29 10:45 | Fluoroscopy Report ---
FL hip RT 1V CLINICAL HISTORY: RT ANTERIOR HIP COMPARISON STUDY: None FLUOROSCOPY TIME: 8 seconds FLUOROSCOPY IMAGES: 2 EXPOSURE DOSE: 1.0 mGy FINDINGS: Fluoroscopy was provided for right hip prosthesis. IMPRESSION: Intraoperative fluoroscopy. ACT 112: Negative or not required by law. Electronically signed by: Guero Andino M.D. 06/29/2024 10:44 AM
--- NOTE | 2024-06-29 11:08 | Anesthesiology Progress Note ---
Date of Service June 29, 2024 Anesthesia Post Procedure Vital Signs Vital Signs: Temp Pulse Resp BP Pulse Ox O2 Del Method O2 Flow Rate 06/29/24 11:00 36.5 C 81 19 158/78 H 100 Room Air 06/29/24 10:50 78 18 172/80 H 98 Room Air 06/29/24 10:40 77 17 165/78 H 97 Room Air 06/29/24 10:30 85 18 178/73 H 94 Room Air 06/29/24 10:20 82 17 151/89 H 96 Oxymask 2 06/29/24 10:14 36.5 C 84 17 180/103 H 100 Oxymask 4 06/29/24 07:21 36.9 C 88 18 180/85 H 100 Room Air Pain Intensity Right Groin: Pain Intensity: 10 Transfer of Care Handoff Completed per policy Notes Mental Status: alert / awake / arousable and participated in evaluation Patient Amnestic to Procedure: Yes Nausea / Vomiting: adequately controlled Pain: adequately controlled Airway Patency, RR, SpO2: stable & adequate BP & HR: stable & adequate Hydration State: stable & adequate Anesthetic Complications: no major complications apparent and Pt Satisfied with anesthetic care
[2024-06-29] MEDS ORDERED: METOCLOPRAMIDE HCL INJ 5 MG/ML 2 ML VIAL IV PRN (12:05)
[2024-06-29] MEDS ORDERED: hydrOXYzine HCl 25 MG TAB PO PRN (12:05)
[2024-06-29] MEDS ORDERED: bisacodyL 10 MG SUPP PR PRN (12:05)
[2024-06-29] MEDS ORDERED: NALOXONE HCL 0.4 MG/1 ML VIAL/CARP IV PRN (12:05)
[2024-06-29] MEDS ORDERED: MAGNESIUM HYDROXIDE SUSP 30 ML UDC PO PRN (12:05)
[2024-06-29] MEDS ORDERED: HYDROmorphone INJ 0.5 MG/0.5 ML SYR IV PRN (12:05)
[2024-06-29] MEDS: KETOROLAC TROMETHAMINE 15 MG/ML VIAL IV SCH (14:45)
[2024-06-29] MEDS ORDERED: Nursing to Pharmacy Communication SCH (15:00)
[2024-06-29] MEDS: ceFAZolin 1000MG 1,000 MG/7.5 ML SYR IV SCH (18:38)
[2024-06-29] MEDS: DOCUSATE SODIUM 100 MG CAP PO SCH (20:20)
[2024-06-29] MEDS: FUROSEMIDE 20 MG TAB PO SCH (20:20)
[2024-06-29] MEDS: SENNA 8.6 MG TAB PO SCH (20:20)
[2024-06-29] MEDS: ASPIRIN 81 MG ECTAB PO SCH (20:20)
[2024-06-29] MEDS: oxyCODONE HCL IR 5 MG TAB (IMMEDIATE RELEASE) PO PRN (20:21)
[2024-06-30 04:37] VITALS: O2SAT 97
[2024-06-30 07:21] VITALS: BP 164/82; PULSE 77; RESP 16; TEMP 97.7
[2024-06-30] MEDS: dexAMETHasone 4 MG TAB PO SCH (09:09)
[2024-06-30] MEDS: PANTOprazole 40 MG TAB PO SCH (09:09)
[2024-06-30] MEDS: MULTIVITAMIN TAB PO SCH (09:09)
[2024-06-30] MEDS: SERTRALINE HCL 50 MG TABLET PO SCH (09:10)
--- NOTE | 2024-06-30 12:56 | Orthopedic Progress Note ---
Date of Service June 30, 2024 Assessment & Plan (1) Status post right hip replacement: Assessment: Status post right anterior total hip arthroplasty. Plan: Overall, she is doing quite well today with good pain control right hip. She will work with therapy later this morning to work on ambulation and range of motion exercises. She was started on aspirin for DVT prophylaxis. She can be discharged home later this morning pending formal physical therapy evaluation and recommendation. Her Silverlon dressing should remain in place for 7 days. After 7 days, she can discharge on her own or with help with home health. She will follow-up with orthopedics in 2 to 3 weeks for continued postoperative management or sooner if needed. Subjective . Alanna was seen this morning resting comfortably in no apparent distress. She notes that her pain is well-controlled to the right hip. She has been up and out of bed without any significant issues. She has yet to work physical therapy this morning. She denies any concerns with her surgical incision site. She denies any active bleeding, discharge, or signs of infection. She denies any other concerns today. Review of Systems All systems reviewed & are unremarkable except as noted in HPI & below. Physical Exam . On physical examination of the right hip, her dressing is in place clean, dry, intact with no signs of active bleeding, discharge, or signs infection. Her leg is out in full extension. She has limited range of motion secondary to postoperative stiffness soreness. Calf soft nontender to palpation. Negative Homans' sign. Intact plantarflexion dorsiflexion of the right ankle. +2 DP and PT pulse. Less than 2-second capillary refill. Normal sensation. Neurovascular intact. Results & Data Results & Data Laboratory Results . Diagnostic Findings . Hip X-Ray 06/29/24 09:00 FL hip RT 1V CLINICAL HISTORY: RT ANTERIOR HIP COMPARISON STUDY: None FLUOROSCOPY TIME: 8 seconds FLUOROSCOPY IMAGES: 2 EXPOSURE DOSE: 1.0 mGy FINDINGS: Fluoroscopy was provided for right hip prosthesis. IMPRESSION: Intraoperative fluoroscopy. ACT 112: Negative or not required by law. Electronically signed by: Guero Andino M.D. 06/29/2024 10:44 AM Hip/Pelvis X-Ray 06/29/24 10:14 XR hip 1V RT w pelvis CLINICAL HISTORY: IN PACU - Post Surgical COMPARISON: 01/31/2024 FINDINGS: Interval right hip prosthesis shows no hardware complication. There is expected soft tissue gas. Skin mee are present laterally. Left hip prosthesis is stable. IMPRESSION: Unremarkable postoperative exam. ACT 112: Negative or not required by law. Electronically signed by: Guero Andino M.D. 06/29/2024 10:38 AM PG Care Time/CCT Total # of Minutes Spent Total Time Spent with Patient: Total time spent is greater than 50% in coordination of care (as documented) at patient's floor/unit and/or counseling patient: Coding Level of Care Code 42939 Post Operative Follow-Up Diagnoses Status post right hip replacement Z96.641
--- NOTE | 2024-06-30 12:57 | Discharge Summary ---
Date of Service June 30, 2024 Admission HPI (Per Admitting) Alanna is a pleasant 78-year-old female who has been with chronic increasing right hip and groin pain. X-rays and clinical examination have been diagnostic for advanced osteoarthritis of the right hip. After failed conservative treatment, she has elected to proceed with a right total hip arthroplasty. I did do a left hip replacement on her about 6 months ago and she has done very well with that.. Admission Exam (Per Admitting) On physical exam of the right hip, she has decreased range of motion. She has pain with internal and external rotation. All of her pains located in the groin.. Principal Diagnosis Same as "Discharge Diagnosis" noted below under Discharge Instructions. Discharge Exam . On physical examination of the right hip, her dressing is in place clean, dry, intact with no signs of active bleeding, discharge, or signs infection. Her leg is out in full extension. She has limited range of motion secondary to postoperative stiffness soreness. Calf soft nontender to palpation. Negative Homans' sign. Intact plantarflexion dorsiflexion of the right ankle. +2 DP and PT pulse. Less than 2-second capillary refill. Normal sensation. Neurovascular intact. Discharge Data Procedures Performed Operation Date: 06/29/24 09:00 Actual Procedures p Right Anterior Total Hip Arthroplasty, Uncemented(Right) - Rodríguez Dallas DO Ordered Studies 06/29/24 09:00 FL hip RT 1V Routine Hospital Course (1) Status post right hip replacement: On June 29, 2024 Alanna arrived at [facility] and underwent a right anterior total hip arthroplasty performed by Dr. Dallas with no complications. She had a spinal anesthetic. Postoperatively, she was started on aspirin for DVT prophylaxis and transferred to the general orthopedic floor in stable condition. Her hospital course was uneventful. On postoperative day #1, her vital signs were stable and her pain was well-controlled. She participated well with physical therapy working on ambulation and range of motion exercises. She was then discharged home in stable condition. She will follow-up with orthopedics in 2 to 3 weeks for continued postoperative management or sooner if needed. PG Care Time/CCT Total # of Minutes Spent Total Time Spent with Patient: Total time spent is greater than 50% in coordination of care (as documented) at patient's floor/unit and/or counseling patient: Discharge Plan Discharge Items Patient Disposition: Home - Home Health Services Reason For Visit: Right Hip Arthritis Discharge Diagnosis: Same Activity: Per Instructions section Non-emergency contact: Surgeon Call non-emergency contact if: your temperature is above 101.5, your wound has increased redness, your wound has increased drainage and your wound pain has increased Follow-up/Referrals: Kanika Espinoza CRNP [Primary Care Provider] - Diet: Regular Addtl Attending Provider Instructions: Activity and Therapy Recommendations: * If you are using [facility] then therapy will be provided at your home until they feel you have accomplished all of your goals. * If you are using [facility] then Physical Therapy will be provided until they feel you are ready to start Outpatient Physical Therapy. * If you are not using home therapy then Outpatient Physical Therapy should start about 3-5 days from your day of surgery. Therapy will last about 6-10 weeks * You were shown a series of exercises in the hospital. Do these exercises three times each day including the exercises you were shown in physical therapy. * Get up and walk several times each day.~ For the first four weeks, try not to stand or walk for more than one hour at a time. If you do stand or walk for more than one hour, you will not hurt anything, but your leg will likely swell.~~ * As you feel comfortable, you may change from the walker or crutches to a cane and~then to independent walking. Medications: * Narcotic You will likely be sent home from the hospital with a prescription for the narcotic pain medication that worked best throughout your stay. * Cefadroxil -take the antibiotic twice a day for 10 days to help prevent infection. * Aspirin Most patients will be required to take Aspirin 81mg twice a day for 6 weeks after surgery. This is obtained [id number] and a prescription is not necessary. * Other medications may be prescribed for specific circumstances. If you have any questions, please call the office at . * Resume previous home medications unless otherwise instructed TEDs/Elastic Stockings: The white elastic stockings help limit swelling and prevent blood clots from forming in your legs. The more you wear them, the more they work. Wear them for 2 weeks. Dressing Care: Leave the Silverlon dressing in place for 7 days. After 7 days you may remove the dressing. If the incision is not draining then you may leave the mee open to air. If there is a little bit of drainage or if the mee are getting stuck on your clothing then cover the incision with a dry dressing. The mee will be removed at your 2 week follow-up appointment. Showering: You may shower with the Silverlon dressing in place. Do not let the shower spray hit the dressing directly. Pat the Silverlon dressing dry. If the dressing becomes wet underneath, then simply remove the dressing. Keep the incision dry until you are 7 days out from the day of surgery. After 7 days you may remove the Silverlon dressing and shower with the mee exposed. Let soapy water run over the mee and pat them dry. Do not scrub or soak the incision. Diet: You may resume your previous diet. Things To Watch For: * Drainage from the incision site that occurs more than one week after your surgery. * Increased redness at the incision site. * Fever above 102 degrees Fahrenheit. * Unusual chest pain or shortness of breath. * Call [facility] at with any of the above problems Follow-Up Visit: Follow-up with Dr. Dallas's office 2-3 weeks after your day of surgery. We will remove your mee and answer any questions. If you have any additional questions or concerns, Dr Dallas is usually in the office at the same time and will be available An appointment was probably scheduled when you signed-up for surgery in the office. If you have any questions call Office Instructions: More detailed instructions as well as Frequently Asked Questions were provided in a folder by our office when you signed-up for surgery. Please review these instructions when you get home. If you have any further questions or concerns, please feel free to call the office at [phone] Pending Studies at Discharge: No Stand-Alone Forms: My [facility] [employer], Smoking Cessation Medications and DC Order Prescriptions: New aspirin 81 mg Tablet,Delayed Release (Dr/Ec) 81 mg PO BID 42 Days Qty: 0 0RF cefadroxil 500 mg capsule 500 mg PO BID 10 Days Qty: 20 0RF oxycodone 5 mg tablet 5 mg PO Q6H PRN (Reason: pain) Qty: 30 0RF Continued furosemide 20 mg tablet 20 mg PO BID Qty: 180 1RF glucosamine-chondroitin [Osteo Bi-Flex] 250-200 mg tablet 2 tab PO TID Qty: 180 0RF Rx Instructions: otc give after food/meal ascorbic acid (vitamin C) 500 mg capsule 500 mg PO DAILY Qty: 30 0RF Rx Instructions: otc hydroxyzine HCl 25 mg tablet 25 mg PO HS PRN (Reason: sleep) Qty: 90 0RF omeprazole 40 mg capsule,delayed release(DR/EC) 40 mg PO QAM Rx Instructions: OTC/ no fill history available sertraline [Zoloft] 25 mg tablet 25 mg PO QAM cyanocobalamin (vitamin B-12) 1,000 mcg Tablet 1,000 mcg PO DAILY potassium chloride 10 mEq Capsule, Extended Release 10 meq PO QAM Krames/Other Patient Handouts: How Your Hip Works Admission Data Admit Date/Time: 06/29/24 10:14 Attending Provider: Rodríguez Dallas Admit Provider: Rodríguez Dallas Primary Care Provider: Kanika Espinoza Other Interventions: Discharge Summary Assessment (RN) Last Done: 06/30/24 10:18
== END 2024-06-30 10:40 | disposition home health service (06) ==
LOC: PACUINP 06:51 → ASU 06:51 → 3W 14:33